=== PATIENT | male | born 1945 | race Caucasian/White ===

== ENCOUNTER 2016-08-30 11:31 | Outpatient (CLI) | payer MEDICARE | END 2016-08-30 11:32 | disposition home or self-care (01) | DX: E11.9 Type 2 diabetes mellitus without complications (principal) ==

== ENCOUNTER 2016-12-11 07:41 | Outpatient (CLI) | payer MEDICARE ==
[2016-12-11 08:38] LABS: HEMOGLOBIN A1C 0.8 g/dL
== END 2016-12-11 07:42 | disposition home or self-care (01) ==
LOC: LAB 07:41
PROVIDERS: ATTEND Internal Medicine
DX: E11.65 Type 2 diabetes mellitus with hyperglycemia (principal)
CPT/HCPCS: 36415; 83036

== ENCOUNTER 2017-02-02 13:07 | Outpatient (CLI) | payer MEDICARE | END 2017-02-02 13:08 | disposition home or self-care (01) | LOC: SC 13:07 | PROVIDERS: ATTEND Internal Medicine Pulmonary Disease | DX: G47.33 Obstructive sleep apnea (adult) (pediatric) (principal) | CPT/HCPCS: 99213; G0463; 99212 ==

== ENCOUNTER 2017-05-13 08:12 | Outpatient (CLI) | payer MEDICARE ==
[2017-05-13 08:25] LABS: BASOPHILS % (AUTO) 0.7 %; EOSINOPHILS # (AUTO) 0.1 10^3/uL (0.0-0.7); EOSINOPHILS % (AUTO) 1.3 %; HCT - HEMATOCRIT 39.7 % (42.0-52.0); HGB - HEMOGLOBIN 13.7 g/dL (14.0-18.0); LYMPHOCYTES # (AUTO) 1.3 10^3/uL (1.5-3.5); LYMPHOCYTES % (AUTO) 25.2 %; MEAN CORPUSCULAR HEMOGLOBIN 30.8 pg (27.0-31.0); MEAN CORPUSCULAR HGB CONC 34.4 g/dL (32.0-36.0); MEAN CORPUSCULAR VOLUME 89.5 fL (80.0-94.0); MEAN PLATELET VOLUME 7.3 fL (7.4-11.4); MONOCYTES # (AUTO) 0.5 10^3/uL (0.0-1.0); NEUTROPHILS # (AUTO) 3.3 10^3/uL (1.5-6.6); NEUTROPHILS % (AUTO) 63.8 %; NUCLEATED RED BLOOD CELLS AUTO 0.1 /100WBC; RED BLOOD COUNT 4.44 10^6/uL (4.70-6.10); RED CELL DISTRIBUTION WIDTH 14.1 % (12.0-15.0); UNCORRECTED WHITE BLOOD COUNT 5.1 x10^3/uL; WHITE BLOOD COUNT 5.1 x10^3/uL (4.8-10.8)
[2017-05-13 08:42] LABS: ALBUMIN/GLOBULIN RATIO 1.7 (1.0-2.2); BILIRUBIN,TOTAL 0.8 mg/dL (0.2-1.0); BUN - BLOOD UREA NITROGEN 12 mg/dL (6-20); CALCIUM 8.9 mg/dL (8.5-10.3); CARBON DIOXIDE - CO2 26 mmol/L (21-32); CHLORIDE 106 mmol/L (101-111); CHOL/HDL RATIO 2.6 (<5.0); CHOLESTEROL 121 mg/dL; CREATININE 0.7 mg/dL (0.6-1.2); GFR - MDRD 112 (>89); GLUCOSE 139 mg/dL (70-100); HDL CHOLESTEROL 46 mg/dL; LDL/HDL RATIO 1.2 (<3.6); POTASSIUM 3.7 mmol/L (3.5-5.0); SODIUM 139 mmol/L (135-145); TRIGLYCERIDES 105 mg/dL; VLDL CHOLESTEROL 21 mg/dL
[2017-05-13 08:47] LABS: HEMOGLOBIN A1C 0.6 g/dL
== END 2017-05-13 08:13 | disposition home or self-care (01) ==
LOC: LAB 08:12
PROVIDERS: ATTEND Internal Medicine
DX: G47.33 Obstructive sleep apnea (adult) (pediatric) (principal); E11.9 Type 2 diabetes mellitus without complications; I10 Essential (primary) hypertension; E78.5 Hyperlipidemia, unspecified; N40.0 Benign prostatic hyperplasia without lower urinary tract symptoms; N20.0 Calculus of kidney
CPT/HCPCS: 36415; 80053; 80061; 83036; 84443; 85025

== ENCOUNTER 2017-05-19 09:18 | Outpatient (CLI) | payer MEDICARE | END 2017-05-19 09:19 | disposition home or self-care (01) | LOC: LAB 09:18 | PROVIDERS: ATTEND Internal Medicine | DX: N40.0 Benign prostatic hyperplasia without lower urinary tract symptoms (principal) | CPT/HCPCS: 84153 ==

== ENCOUNTER 2017-10-12 09:33 | Outpatient (CLI) | payer MEDICARE ==
[2017-10-12 10:46] LABS: HB2 TOTAL 14.7 g/dL; HEMOGLOBIN A1C 0.68 g/dL; HEMOGLOBIN A1C % 6.4 % (4.6-6.2)
== END 2017-10-12 09:34 | disposition home or self-care (01) ==
LOC: LAB 09:33
PROVIDERS: ATTEND Internal Medicine
DX: E11.9 Type 2 diabetes mellitus without complications (principal)
CPT/HCPCS: 36415; 83036

== ENCOUNTER 2017-12-15 14:00 | Outpatient (CLI) | payer MEDICARE | END 2017-12-15 14:01 | disposition home or self-care (01) | LOC: SC 14:00 | PROVIDERS: ATTEND Internal Medicine Pulmonary Disease | DX: G47.33 Obstructive sleep apnea (adult) (pediatric) (principal) | CPT/HCPCS: 99213; G0463; 99212 ==

== ENCOUNTER 2018-02-04 08:34 | Outpatient (CLI) | payer MEDICARE | END 2018-02-04 08:35 | disposition home or self-care (01) | LOC: SC 08:34 | PROVIDERS: ATTEND Nurse Practitioner Family | DX: G47.33 Obstructive sleep apnea (adult) (pediatric) (principal) | CPT/HCPCS: 99214; G0463; 99212 ==

== ENCOUNTER 2018-06-17 07:52 | Outpatient (CLI) | payer MEDICARE ==
[2018-06-17 08:53] LABS: ALBUMIN 4.3 g/dL (3.2-5.5); ALBUMIN/GLOBULIN RATIO 1.6 (1.0-2.2); ALKALINE PHOSPHATASE 57 IU/L (42-121); ALT ALANINE AMINOTRANSFERASE 22 IU/L (10-60); AST ASPARTATE AMINOTRANSFERASE 21 IU/L (10-42); BILIRUBIN,TOTAL 1.3 mg/dL (0.2-1.0); BUN - BLOOD UREA NITROGEN 9 mg/dL (6-20); CALCIUM 9.1 mg/dL (8.5-10.3); CARBON DIOXIDE - CO2 25 mmol/L (21-32); CHLORIDE 107 mmol/L (101-111); CHOLESTEROL 132 mg/dL; CREATININE 0.7 mg/dL (0.6-1.2); GFR - MDRD 111 (>89); GLUCOSE 157 mg/dL (70-100); HDL CHOLESTEROL 65 mg/dL; LDL CHOLESTEROL,CALCULATED 48 mg/dL; LDL/HDL RATIO 0.7 (<3.6); SODIUM 141 mmol/L (135-145); URIC ACID 6.1 mg/dL (2.6-7.2); VLDL CHOLESTEROL 19 mg/dL
[2018-06-17 09:36] LABS: BASOPHILS # (AUTO) 0.1 10^3/uL (0.0-0.1); BASOPHILS % (AUTO) 1.4 %; EOSINOPHILS # (AUTO) 0.1 10^3/uL (0.0-0.7); EOSINOPHILS % (AUTO) 1.8 %; HGB - HEMOGLOBIN 14.1 g/dL (14.0-18.0); LYMPHOCYTES # (AUTO) 1.2 10^3/uL (1.5-3.5); LYMPHOCYTES % (AUTO) 25.6 %; MEAN CORPUSCULAR HEMOGLOBIN 31.3 pg (27.0-31.0); MEAN CORPUSCULAR HGB CONC 34.2 g/dL (32.0-36.0); MEAN CORPUSCULAR VOLUME 91.6 fL (80.0-94.0); MEAN PLATELET VOLUME 8.4 fL (7.4-11.4); MONOCYTES # (AUTO) 0.5 10^3/uL (0.0-1.0); MONOCYTES % (AUTO) 10.5 %; NEUTROPHILS # (AUTO) 2.8 10^3/uL (1.5-6.6); NEUTROPHILS % (AUTO) 60.7 %; PLT - PLATELET COUNT 181 10^3/uL (130-450); RED CELL DISTRIBUTION WIDTH 13.8 % (12.0-15.0); WHITE BLOOD COUNT 4.6 x10^3/uL (4.8-10.8)
[2018-06-17 19:21] LABS: HB2 TOTAL 14.4 g/dL; HEMOGLOBIN A1C 0.6 g/dL
== END 2018-06-17 07:53 | disposition home or self-care (01) ==
LOC: LAB 07:52
PROVIDERS: ATTEND Internal Medicine
DX: E11.9 Type 2 diabetes mellitus without complications (principal); N40.0 Benign prostatic hyperplasia without lower urinary tract symptoms; E78.5 Hyperlipidemia, unspecified; I10 Essential (primary) hypertension; Z79.899 Other long term (current) drug therapy; Z12.5 Encounter for screening for malignant neoplasm of prostate; M10.9 Gout, unspecified
CPT/HCPCS: 36415; 80053; 80061; 83036; 84443; 84550; 85025; G0103; 83721; 84153

== ENCOUNTER 2019-02-08 09:13 | Outpatient (CLI) | payer MEDICARE ==
--- NOTE | 2019-02-08 09:48 | SLEEP CARE CONSULTATION ---
Information from patient questionnaire entered by Mariza Pena. I have reviewed and concur with the information entered by Mariza Pena. This document represents the service I personally performed and the decisions made by me, Shy Khan MD, [facility]. History of Present Illness Previous diagnosis: Severe, Obstructive Sleep Apnea-Hypopnea Syndrome AHI: 59.1 Reason for CPAP/BiPAP follow up: annual Equipment type: CPAP Equipment obtained from: [facility] Mask style: Full face Mask brand: Respironics HPI additional information: HPI: Mr. Figueroa returned today for an annual follow up of nasal CPAP therapy. He was diagnosed to have severe obstructive sleep apnea-hypopnea syndrome. The patient a Respironics FanzilaWear full face mask. He reports using the device nightly and all through the night. The compliance report shows usage in 179 nights out of the past 180 nights, averaging 8.5 hours a night. He complained of no particular problem with the device such as soreness on the face, dry nose, epistaxis, nasal congestion or headache. He thinks that the pressure of 4 - 8 is comfortable. On the CPAP therapy he notices improvement in his sleep quality, and that he wakes up feeling fresher in the morning and more awake/alert during the day. His notices no snore at all (she snores loudly herself). The average residual AHI is 2.7; and air leak, 28 seconds a night. The 90th percentile pressure is 7.6 cmH2O. CPAP Compliance Data - Data Reviewed with Patient Average duration of nightly device use: 8.5 Compliance rate %: 99.4 (180 days) Current pressure setting (cmH2O): 4-8 Humidity settin Heated hose settin Average residual AHI: 2.7 Average large leak: 28 secs Subjective Initial [place] Sleepiness Scale score: 4 Current [place] Sleepiness Scale score: 4 Allergies and Home Medications Drug allergies reviewed: Yes Home medication list reviewed: Yes Allergy and home medication list: Medication Name (generic/name brand) Strength & Dosage Enalapril 20mg tab one twice daily Terazosin 10mg tab one twice daily Metformin 500mg tab one twice daily Finasteride 5mg one three times a week Plavix 75mg tab one three times a week Amlodipine Besylate 5mg tab one daily Review of Systems Review of systems same as previous: Yes Physical Exam Height: 5 ft 11 in Weight (kg): 245 lb Body Mass Index: 34.2 BMI Classification: Class 1 HEENT: No craniofacial malformation Impression and Plan 1. Obstructive Sleep Apnea-Hypopnea Syndrome, as suggested by history of loud and irregular snoring, frequent awakenings during the night, and daytime hypersomnolence. Narrow oropharynx and obesity are common predisposing factors for obstructive sleep apnea-hypopnea syndrome. Pathophysiology of sleep- disordered breathing was discussed. I recommend proceeding to polysomnography to confirm the diagnosis and to assess severity. If he has significant sleep disordered breathing, a manual CPAP titration study will also be performed to find the optimal treatment pressure. I informed the patient of what the sleep studies involve and after some discussion, he agreed to proceed. Plan: 1. Schedule polysomnography + manual CPAP titration study and return in 1 to 2 weeks after the study to discuss result and initiate therapy. 2. Avoid long distance driving or when feeling sleepy. 3. Avoid alcohol, sedative and muscle relaxant around bedtime. 4. Attempt to lose weight. I spent 100% of this 30 minute visit face to face with the patient with greater than 50% of this was spent time counseling the patient and coordination of care.
== END 2019-02-08 09:14 | disposition home or self-care (01) ==
LOC: SC 09:13
PROVIDERS: ATTEND Internal Medicine Pulmonary Disease
DX: G47.33 Obstructive sleep apnea (adult) (pediatric) (principal)
CPT/HCPCS: 99213; G0463; 99212

== ENCOUNTER 2019-03-06 17:03 | Emergency (ER) | payer MEDICARE ==
--- NOTE | 2019-03-06 17:31 | ED Physician Documentation ---
History of Present Illness - Stated complaint Stated Complaint: MALE /BLOOD IN URINE - Chief complaint Chief Complaint: UTI - History obtained from History obtained from: Patient - History of Present Illness Timing: Today (Painless hematuria today, mild urinary frequency without dysuria. He has a history of BPH for which she is on finasteride and has had renal colic in the past. He has mild low back pain but no flank pain.) Review of Systems Constitutional: denies: Fever, Chills GI: denies: Abdominal Pain, Nausea, Vomiting : reports: Frequency. denies: Dysuria, Hesitancy PD PAST MEDICAL HISTORY - Past Medical History Cardiovascular: Hypertension, High cholesterol, Coronary artery disease, Other Respiratory: Sleep apnea, CPAP use Endocrine/Autoimmune: Type 2 diabetes GI: None : Benign prostate hypertrophy, Kidney stones HEENT: None Psych: None Musculoskeletal: Osteoarthritis, Gout, Other Derm: None - Past Surgical History General: Cholecystectomy, Colonoscopy Ortho: Arthroscopic surgery, Other - Present Medications Home Medications: Ambulatory Orders Medication Instructions Recorded Confirmed Enalapril Maleate [Vasotec] 20 mg PO BID 02/13/14 05/10/14 Finasteride [Proscar] 5 mg ORAL DAILY 02/13/14 05/10/14 Metformin HCl [Metformin ER 500 mg PO BID 02/13/14 05/10/14 Osmotic] Pravastatin Sodium 20 mg ORAL DAILY 02/13/14 05/10/14 Terazosin [Hytrin] 10 mg ORAL BID 02/13/14 05/10/14 Aspirin [Aspir 81] 1 tab ORAL DAILY 02/14/14 05/11/14 amLODIPine [Norvasc] 5 mg PO DAILY 05/11/14 05/11/14 Hydrocodone/Acetaminophen 1 - 2 each PO Q6H PRN #14 tablet 03/06/19 [Hydrocodon-Acetaminophen 5-325] - Allergies Allergies/Adverse Reactions: Allergies Allergy/AdvReac Type Severity Reaction Status Date / Time No Known Drug Allergies Allergy Verified 03/06/19 17:19 - Social History Does the pt smoke?: No Smoking Status: Never smoker Does the pt drink ETOH?: Yes - Immunizations Immunizations are current?: Yes PD ED PE NORMAL - Vitals Vital signs reviewed: Yes - General General: Alert and oriented X 3, No acute distress - Abdomen Abdomen: Normal bowel sounds, Soft, Non tender - Back Back: No CVA TTP, No spinal TTP - Derm Derm: Normal color, Warm and dry - Neuro Neuro: Alert and oriented X 3, Normal speech Results - Vitals Vitals: Vital Signs - 24 hr 03/06/19 03/06/19 17:19 19:44 Temperature 36.9 C 36.7 C Heart Rate 70 68 Respiratory 15 16 Rate Blood Pressure 165/84 H 142/71 H O2 Saturation 97 98 Oxygen O2 Source Room air - Labs Labs: Laboratory Tests 03/06/19 17:25 Urine Color LT RED Urine Clarity BLOODY Urine pH 6.5 Ur Specific [place] <=1.005 Urine Protein NEGATIVE Urine Glucose (UA) NEGATIVE Urine Ketones NEGATIVE Urine Occult Blood LARGE H Urine Nitrite NEGATIVE Urine Bilirubin NEGATIVE Urine Urobilinogen 0.2 (NORMAL) Ur Leukocyte Esterase NEGATIVE Urine RBC TNTC H Urine WBC 0-3 Ur Squamous Epith Cells NONE SEEN Urine Bacteria None Seen Ur Microscopic Review INDICATED Urine Culture Comments NOT INDICATED - Rads (name of study) CT KUB Radiology: EMP read contemporaneously (Obstructing 8 mm calculus in the distal right ureter, enlarged heterogenous prostate, coronary artery calcifications) PD MEDICAL DECISION MAKING - ED course ED course: This is a gentleman with history of renal colic and BPH who presents with gross hematuria today. The urine is not opaque and there are no clots. A CT was done showing an 8 mm stone from which he has minimal pain. He was given a prescription for hydrocodone just in case but he does need urologic follow-up given the size. Departure - Departure Disposition: 01 Home, Self Care Clinical Impression: Ureteral calculus, right Hematuria Qualifiers: Hematuria type: gross Qualified Code(s): R31.0 - Gross hematuria Hydronephrosis Qualifiers: Hydronephrosis type: with renal calculous obstruction Qualified Code(s): N13.2 - Hydronephrosis with renal and ureteral calculous obstruction Condition: Good Record reviewed to determine appropriate education?: Yes Instructions: ED Stone Renal W Colic Follow-Up: James Garcia MD [Provider Admit Priv/Credential] - Prescriptions: Hydrocodone/Acetaminophen [Hydrocodon-Acetaminophen 5-325] 1 - 2 each PO Q6H PRN #14 tablet PRN Reason: pain Comments: The cause of your bleeding today is an 8 mm right ureteral stone. You will need to follow-up with urology for this. Call tomorrow for an appointment. Return for new worsening symptoms. Drink plenty of water. Discharge Date/Time: 03/06/19 19:44
[2019-03-06 17:35] LABS: BILIRUBIN,URINE NEGATIVE (NEGATIVE); GLUCOSE, URINE (UA) NEGATIVE (NEGATIVE); KETONES,URINE (UA) NEGATIVE (NEGATIVE); LEUKOCYTE ESTERASE, URINE NEGATIVE (NEGATIVE); NITRITE,URINE NEGATIVE (NEGATIVE); OCCULT BLOOD,URINE LARGE (NEGATIVE); PH,URINE 6.5 PH (5.0-7.5); PROTEIN,URINE NEGATIVE (NEGATIVE); UROBILINOGEN,URINE 0.2 (NORMAL) E.U./dL (NORMAL)
[2019-03-06 17:37] LABS: CLARITY,URINE BLOODY (CLEAR)
[2019-03-06 17:42] LABS: BACTERIA,URINE None Seen /HPF (None Seen); RBC,URINE TNTC /HPF (0-5); SQUAMOUS EPITHELIAL CELL,UR NONE SEEN (<= Few)
--- NOTE | 2019-03-06 19:04 | CT Report ---
Reason: hematuria Procedure Date: 03/06/2019 Accession Number: [id number] / [id number] Procedure: CT - Abdomen/Pelvis WO CPT Code: FULL RESULT: EXAM: CT ABDOMEN AND PELVIS (CT KUB) EXAM DATE: 03/06/2019 06:06 PM. CLINICAL HISTORY: Hematuria. COMPARISONS: None. TECHNIQUE: Routine helical CT imaging was performed through the abdomen and pelvis without intravenous contrast. Lack of intravenous contrast can at times limit scan sensitivity, particularly for the detection of intraparenchymal and vascular pathology. Reconstructions: Coronal and sagittal. In accordance with CT protocol optimization, one or more of the following dose reduction techniques were utilized for this exam: automated exposure control, adjustment of mA and/or KV based on patient size, or use of iterative reconstructive technique. FINDINGS: ABDOMEN: Lung Bases: Incompletely included lower lungs are grossly clear. Heart size is within normal limits. Partially imaged severe coronary artery calcifications. No basilar effusions. Liver: Unremarkable. Gallbladder/Bile Ducts: Status post cholecystectomy. Visualized biliary tree is normal caliber. Spleen: Unremarkable. Pancreas: Unremarkable. Adrenal Glands: Unremarkable. Kidneys: Right kidney: A couple of calculi measuring up to 3 mm in the inferior pole. Mild hydroureteronephrosis to the level of an obstructing 8 mm calculus in the distal right ureter. Left kidney: Multiple renal cysts. No hydronephrosis or ureteric calculi. Peritoneum/Mesentery/Bowel: No free fluid, free air, or collection. No intestinal obstruction or inflammation. Appendix is unremarkable. Lymph nodes: No mesenteric, periportal, or retroperitoneal lymphadenopathy. PELVIS: The bladder is unremarkable for the degree of distention. Enlarged heterogeneous prostate indenting the base of the bladder. Large left and small right fat filled inguinal hernias. No pelvic lymphadenopathy. Retroperitoneum: Abdominal aorta is nonaneurysmal. Bones: No suspicious osseous lesions. IMPRESSION: Obstructing 8 mm calculus in the distal right ureter with mild hydroureteronephrosis. Enlarged heterogeneous prostate indenting the base of the bladder. Coronary artery calcifications. RADIA
[2019-03-06 19:45] VITALS: BP 142/71
== END 2019-03-06 19:44 | disposition home or self-care (01) ==
LOC: ED 17:03
DX: N13.2 Hydronephrosis with renal and ureteral calculous obstruction (principal); R31.0 Gross hematuria; N40.1 Benign prostatic hyperplasia with lower urinary tract symptoms; R35.0 Frequency of micturition; I10 Essential (primary) hypertension; E11.9 Type 2 diabetes mellitus without complications; Z79.84 Long term (current) use of oral hypoglycemic drugs; Z79.82 Long term (current) use of aspirin
CPT/HCPCS: 74176; 81001; 81003; 87086; 99283; 99284

== ENCOUNTER 2019-03-14 15:13 | Outpatient (CLI) | payer MEDICARE ==
[2019-03-14] MEDS ORDERED: IOVERSOL 320 100 ML VIAL IVP ONE ×2 (15:29→15:44)
--- NOTE | 2019-03-14 21:31 | CT Report ---
Reason: KIDNEY STONE, RENAL CYST Procedure Date: 03/14/2019 Accession Number: [id number] / [id number] Procedure: CT - IVP CPT Code: FULL RESULT: EXAM: CT ABDOMEN AND PELVIS WITHOUT AND WITH CONTRAST (CT IVP) EXAM DATE: 03/14/2019 03:55 PM. CLINICAL HISTORY: KIDNEY STONE, RENAL CYSTs. History of obstructing right ureter stone. Prostatic enlargement. COMPARISONS: ABDOMEN/PELVIS W/O 03/06/2019 6:01 PM. TECHNIQUE: Routine helical imaging was performed through the kidneys, ureters and bladder in the precontrast, postcontrast and delayed phase. IV Contrast: OPTI 320 60ML. Reconstructions: Coronal and sagittal. In accordance with CT protocol optimization, one or more of the following dose reduction techniques were utilized for this exam: automated exposure control, adjustment of mA and/or KV based on patient size, or use of iterative reconstructive technique. FINDINGS: Lung Bases: Cardiomegaly with coronary artery calcifications again seen. Small hiatal hernia. No acute abnormality. Liver: Unremarkable Gallbladder/Bile Ducts: Cholecystectomy. Bile ducts nondilated Spleen: Unremarkable Pancreas: Unremarkable. Adrenal Glands: Unremarkable Kidneys/Bladder: Right Kidney/Ureter: 1 mm lower pole nonobstructing stone again seen. Ureter stone longer visualized. Resolved hydronephrosis and proximal ureter dilation. Multiple incompletely characterized low-attenuation subcentimeter foci in the upper, mid and lower pole most likely representing small cysts. 8 mm high attenuation precontrast focus in posterior aspect of right mid kidney series 3 image 49 also most likely represents a cyst with high attenuation contents. No definite enhancing masses. Collecting systems and ureters opacify normally with contrast. Perinephric soft tissues unremarkable. Left Kidney/Ureter: No definite collecting system stones or ureter stone. No hydronephrosis. No hydroureter. Multiple cysts including 9.6 cm upper pole, 5.6 cm mid kidney posteriorly and 4 cm lower pole. Tiny rim calcifications are seen associated with the mid kidney and lower pole cysts. No significant enhancing components. Additional 9 mm exophytic cyst is seen in the mid to lower pole laterally, series 10 image 25. No complex cystic mass or solid mass suspicious for renal neoplasm/malignancy. Collecting systems and ureters opacify normally with contrast. Otherwise unremarkable. Bladder: Prominent prostate with nodular superior surface indenting the bladder floor. No separate bladder mass. No bladder stones. No gross bladder wall thickening or inflammatory change. No wall thickening or mass. Peritoneal Cavity/Bowel: Normal. No free fluid, free air or adenopathy. No masses or acute inflammatory process. Pelvic Organs: Visualized pelvic organs are unremarkable. Vasculature: Calcified atherosclerosis.No aneurysms or other significant abnormality. Bones: Spondylotic changes. Flowing syndesmophytes bridging multiple thoracic and upper lumbar disk spaces and SI joint fusion in a pattern consistent with ankylosing spondylitis. No bone lesion suspicious for malignancy. No acute bone abnormality. Other: Small fat-containing left inguinal hernia. IMPRESSION: 1. Resolved right hydronephrosis. Right ureter stone longer visualized. Single tiny remaining nonobstructing 1 mm right kidney stone. 2. Kidney cysts, with largest cysts on the left. No complex cystic mass suspicious for neoplasm. 3. Incompletely characterized probable subcentimeter kidney cysts are also seen. No definite enhancing renal neoplasm. Renal collecting systems and ureters appear unremarkable. 4. Examination otherwise as detailed above. RADIA
== END 2019-03-14 15:14 | disposition home or self-care (01) ==
LOC: DI 15:13
PROVIDERS: ATTEND Physician Assistant
DX: N28.1 Cyst of kidney, acquired (principal); N20.0 Calculus of kidney
CPT/HCPCS: 74178; Q9967

== ENCOUNTER 2019-08-31 08:32 | Outpatient (CLI) | payer MEDICARE ==
[2019-08-31 08:53] LABS: BASOPHILS # (AUTO) 0.1 10^3/uL (0.0-0.1); BASOPHILS % (AUTO) 0.9 %; EOSINOPHILS # (AUTO) 0.1 10^3/uL (0.0-0.7); EOSINOPHILS % (AUTO) 1.5 %; HGB - HEMOGLOBIN 13.8 g/dL (14.0-18.0); LYMPHOCYTES # (AUTO) 1.5 10^3/uL (1.5-3.5); MEAN CORPUSCULAR HEMOGLOBIN 31.4 pg (27.0-31.0); MEAN CORPUSCULAR HGB CONC 33.4 g/dL (32.0-36.0); MEAN CORPUSCULAR VOLUME 93.9 fL (80.0-94.0); MEAN PLATELET VOLUME 9.7 fL (7.4-11.4); MONOCYTES # (AUTO) 0.6 10^3/uL (0.0-1.0); MONOCYTES % (AUTO) 10.8 %; NEUTROPHILS # (AUTO) 3.2 10^3/uL (1.5-6.6); NEUTROPHILS % (AUTO) 59.2 %; PLT - PLATELET COUNT 192 10^3/uL (130-450); RED CELL DISTRIBUTION WIDTH 13.3 % (12.0-15.0); WHITE BLOOD COUNT 5.4 x10^3/uL (4.8-10.8)
[2019-08-31 09:12] LABS: ALBUMIN 4.2 g/dL (3.2-5.5); ALBUMIN/GLOBULIN RATIO 1.4 (1.0-2.2); ALKALINE PHOSPHATASE 43 IU/L (42-121); ALT ALANINE AMINOTRANSFERASE 24 IU/L (10-60); AST ASPARTATE AMINOTRANSFERASE 20 IU/L (10-42); BUN - BLOOD UREA NITROGEN 14 mg/dL (6-20); CALCIUM 8.6 mg/dL (8.5-10.3); CARBON DIOXIDE - CO2 27 mmol/L (21-32); CHLORIDE 106 mmol/L (101-111); CHOL/HDL RATIO 3.3 (<5.0); CHOLESTEROL 152 mg/dL; CREATININE 0.7 mg/dL (0.6-1.2); GLUCOSE 171 mg/dL (70-100); HDL CHOLESTEROL 46 mg/dL; LDL CHOLESTEROL,CALCULATED 73 mg/dL; LDL/HDL RATIO 1.6 (<3.6); SODIUM 140 mmol/L (135-145); TOTAL PROTEIN 7.2 g/dL (6.7-8.2); VLDL CHOLESTEROL 33 mg/dL
[2019-08-31 09:17] LABS: HB2 TOTAL 14.3 g/dL; HEMOGLOBIN A1C 0.8 g/dL; HEMOGLOBIN A1C % 7.3 % (4.6-6.2)
== END 2019-08-31 08:33 | disposition home or self-care (01) ==
LOC: LAB 08:32
PROVIDERS: ATTEND Family Medicine
DX: E11.9 Type 2 diabetes mellitus without complications (principal); N40.0 Benign prostatic hyperplasia without lower urinary tract symptoms; E78.5 Hyperlipidemia, unspecified; I10 Essential (primary) hypertension; Z79.899 Other long term (current) drug therapy; Z12.5 Encounter for screening for malignant neoplasm of prostate
CPT/HCPCS: 36415; 80053; 80061; 83036; 84443; 85025; G0103; 83721; 84153

== ENCOUNTER 2020-02-14 10:46 | Outpatient (CLI) | payer MEDICARE ==
--- NOTE | 2020-02-14 11:11 | SLEEP CARE CONSULTATION ---
Information from patient questionnaire entered by Mariza Pena. I have reviewed and concur with the information entered by Mariza Pena. This document represents the service I personally performed and the decisions made by me, Shy Khan MD, [facility]. History of Present Illness Service Date and Time: 02/14/2020 1046 Previous diagnosis: Severe, Obstructive Sleep Apnea-Hypopnea Syndrome AHI: 59.1 (in 2012) Reason for follow up: annual (last seen 2018) Equipment type: CPAP Equipment obtained from: [facility] Mask style: Full face Mask brand: Respironics Prior sleep studies: Yes Year and Where: 2013 - [facility] Type of Sleep Study: Polysomnography HPI additional information: HPI: Mr. Figueroa returned today for an annual follow up of nasal CPAP therapy. He was diagnosed to have severe obstructive sleep apnea-hypopnea syndrome. The patient a Respironics DreamWear full face mask. He continues to use the device nightly and all through the night. The compliance report shows usage in 179 nights out of the past 180 nights, averaging 9 hours a night. He complained of no particular problem with the device such as soreness on the face, dry nose, epistaxis, nasal congestion or headache. He thinks that the pressure of 4 8 cmH2O is comfortable. On the CPAP therapy he notices improvement in his sleep quality, and that he wakes up feeling fresher in the morning and more awake/alert during the day. His notices no snore at all (she snores loudly herself). The average residual AHI is 2.2; and air leak, 19 seconds a night. The 90th percentile pressure is 7.9 cmH2O. CPAP Compliance Data - Data Reviewed with Patient Average duration of nightly device use: 8.95 Compliance rate %: 99.4 (180 days) Current pressure setting (cmH2O): 4-8 Humidity settin Heated hose settin Average residual AHI: 2.2 Average large leak: 19 sec Subjective Current pressure setting perceived as: comfortable Initial [place] Sleepiness Scale score: 4 (in 2012) Current [place] Sleepiness Scale score: 0 Allergies and Home Medications Drug allergies reviewed: Yes Home medication list reviewed: Yes Review of Systems Review of systems same as previous: Yes Physical Exam Vital signs obtained and entered by: To minimize the risk of COVID-19 exposure, detailed exam was not performed. Height: 5 ft 11 in Weight: 250 lb Body Mass Index: 34.8 BMI Classification: Obese Impression and Plan IMPRESSION: 1. Obstructive Sleep Apnea-Hypopnea Syndrome, severe, with the patient continuing to do very well on nasal CPAP therapy. He has excellent compliance and significant clinical improvement. The current pressure appears effective and comfortable. His mask fits well. Overall, he is very satisfied with treat ment and plans to continue with it long-term. No adjustment is necessary today. PLAN: 1. Continue with autoCPAP set at 4 - 8 cmH2O. 2. Try to lose some weight 3. Try using the CPAP without the heated humidifier (he only has it set at 1 at the present). 4. Return in one year for follow up or earlier if there is any problem with the treatment. Visit Type: In Office Time Spent with Patient (minutes): 15 Provider Statement: I spent 100% of the Face to Face Visit with the patient with greater than 50% spent counseling the patient and coordination of care.
== END 2020-02-14 10:47 | disposition home or self-care (01) ==
LOC: SC 10:46
PROVIDERS: ATTEND Internal Medicine Pulmonary Disease
DX: G47.33 Obstructive sleep apnea (adult) (pediatric) (principal); E66.9 Obesity, unspecified; Z68.34 Body mass index [BMI] 34.0-34.9, adult
CPT/HCPCS: 99203; G0463; 99212

== ENCOUNTER 2020-06-21 13:43 | Emergency (ER) | payer MEDICARE ==
--- NOTE | 2020-06-21 14:51 | CT Report ---
PROCEDURE: HEAD WO INDICATIONS: closed head injury, anticoagulated TECHNIQUE: Noncontrast 4.5 mm thick angled axial sections acquired from the foramen magnum to the vertex. For r adiation dose reduction, the following was used: automated exposure control, adjustment of mA and/or kV according to patient size. COMPARISON: None. FINDINGS: Image quality: Excellent. CSF spaces: Basal cisterns are patent. No extra-axial fluid collections. Ventricles are normal in size and shape. Brain: No midline shift. No intracranial masses or hemorrhage. Brain parenchymal volume loss is se en. Mild chronic small vessel ischemic change can be seen. Motley-white matter interface is normal. Skull and face: There is a minimal right forehead soft tissue hematoma seen, as on series 3 image 14 . No underlying calvarial fracture can be seen. Calvarium and visualized facial bones are intact, wit hout suspicious lesions. Sinuses: Visualized sinuses and mastoids are clear. IMPRESSION: Minimal right forehead soft tissue hematoma, without an associated calvarial fracture. No intracranial hemorrhage is seen. No significant intracranial abnormality is seen. Age-appropriate brain parenchymal volume loss and chronic small vessel ischemic change can be seen. Reviewed by: Greg Plata MD on 06/21/2020 1:50 PM [place] Approved by: Greg Plata MD on 06/21/2020 1:50 PM [facility] Station ID: [id number]
--- NOTE | 2020-06-21 15:18 | ED Physician Documentation ---
History of Present Illness - Stated complaint Stated Complaint: FACE PX - Chief complaint Chief Complaint: Trauma Hd/Nk - History obtained from History obtained from: Patient - Additonal information Additional information: Patient comes emergency department for chief complaint of ground-level fall after tripping over a curb. The patient states that he did not really catch himself very much except a little bit with his right hand. He struck his face on the concrete and states the main thing that is bothering him is that he feels a burning sensation in the skin of his face where he scraped himself. Patient states that he did not lose consciousness. He denies any visual changes or other focal neurologic deficits. He was able to get up and walk after the fall. No hip or rib pain. No extremity pain. No other complaints at this time. The patient does take Plavix. Review of Systems Ten Systems: 10 systems reviewed and negative Constitutional: reports: Reviewed and negative Eyes: reports: Reviewed and negative Ears: reports: Reviewed and negative Nose: reports: Reviewed and negative Throat: reports: Reviewed and negative Cardiac: reports: Reviewed and negative Respiratory: reports: Reviewed and negative GI: reports: Reviewed and negative : reports: Reviewed and negative Skin: reports: Abrasion (s) Musculoskeletal: reports: Reviewed and negative Neurologic: reports: Head injury. denies: Headache, LOC Psychiatric: reports: Reviewed and negative Endocrine: reports: Reviewed and negative Immunocompromised: reports: Reviewed and negative PD PAST MEDICAL HISTORY - Past Medical History Past Medical History: Yes Cardiovascular: Hypertension, High cholesterol, Coronary artery disease, Other Respiratory: Sleep apnea, CPAP use Endocrine/Autoimmune: Type 2 diabetes GI: None : Benign prostate hypertrophy, Kidney stones HEENT: None Psych: None Musculoskeletal: Osteoarthritis, Gout, Other Derm: None - Past Surgical History Past Surgical History: Yes General: Cholecystectomy, Colonoscopy Ortho: Arthroscopic surgery, Other - Present Medications Home Medications: Ambulatory Orders Medication Instructions Recorded Confirmed Enalapril Maleate [Vasotec] 20 mg PO BID 02/13/14 05/10/14 Finasteride [Proscar] 5 mg ORAL DAILY 02/13/14 05/10/14 Metformin HCl [Metformin ER 500 mg PO BID 02/13/14 05/10/14 Osmotic] Pravastatin Sodium 20 mg ORAL DAILY 02/13/14 05/10/14 Terazosin [Hytrin] 10 mg ORAL BID 02/13/14 05/10/14 Aspirin [Aspir 81] 1 tab ORAL DAILY 02/14/14 05/11/14 amLODIPine [Norvasc] 5 mg PO DAILY 05/11/14 05/11/14 Hydrocodone/Acetaminophen 1 - 2 each PO Q6H PRN #14 tablet 03/06/19 [Hydrocodon-Acetaminophen 5-325] - Allergies Allergies/Adverse Reactions: Allergies Allergy/AdvReac Type Severity Reaction Status Date / Time No Known Drug Allergies Allergy Verified 06/21/20 13:50 - Social History Does the pt smoke?: No Smoking Status: Never smoker Does the pt drink ETOH?: Yes - Immunizations Immunizations are current?: Yes PD ED PE NORMAL - Vitals Vital signs reviewed: Yes - General General: Alert and oriented X 3, No acute distress - HEENT HEENT: PERRL, EOMI, Moist mucous membranes, Other (Large abrasion over right lateral forehead and face.No bony deformity. No swelling.) - Neck Neck: Supple, no meningeal sign, No bony TTP - Cardiac Cardiac: RRR, No murmur, Strong equal pulses - Respiratory Respiratory: No respiratory distress, Clear bilaterally - Abdomen Abdomen: Soft, Non tender, Non distended - Back Back: No spinal TTP, Other (No rib tenderness posteriorly or anteriorly. No step-off.) - Derm Derm: Normal color, Warm and dry, No rash - Extremities Extremities: No deformity, No tenderness to palpate, Normal ROM s pain (Full range of motion of all extremities at all joints.), No edema, Other - Neuro Neuro: Alert and oriented X 3, assistant plant controller 2-12 intact, No motor deficit, No sensory deficit, Normal speech - Psych Psych: Normal mood, Normal affect Results - Vitals Vitals: Vital Signs - 24 hr 06/21/20 13:50 Temperature 36.7 C Heart Rate 90 Respiratory 19 Rate Blood Pressure 168/80 H O2 Saturation 100 Oxygen O2 Source Room air - Rads (name of study) CT head Radiology: Final report received, EMP read indepedently, See rad report (NAD) Departure - Departure Disposition: 01 Home, Self Care Clinical Impression: Abrasions of multiple sites Closed head injury Qualifiers: Encounter type: initial encounter Qualified Code(s): S09.90XA - Unspecified injury of head, initial encounter Condition: Stable Instructions: ED Head Injury Closed Comments: Your head CT looks good. There is no evidence of any bleeding in your brain you should continue your medications, as usual. You may take Tylenol as needed for any headaches you may have. Once your scrapes have dried up and form scabs, you may leave them open to air.
[2020-06-21] MEDS ORDERED: LIDOCAINE-EPINEPH-TETRACAINE 3 ML SYRINGE TOP STA (15:40)
[2020-06-21 15:51] VITALS: BP 131/83
== END 2020-06-21 15:50 | disposition home or self-care (01) ==
LOC: ED 13:43
DX: S00.81XA Abrasion of other part of head, initial encounter (principal); S09.90XA Unspecified injury of head, initial encounter; W01.0XXA Fall on same level from slipping, tripping and stumbling without subsequent striking against object, initial encounter; Y93.01 Activity, walking, marching and hiking; Y92.242 Post office as the place of occurrence of the external cause; Z79.02 Long term (current) use of antithrombotics/antiplatelets; I10 Essential (primary) hypertension; E11.9 Type 2 diabetes mellitus without complications; Z79.84 Long term (current) use of oral hypoglycemic drugs; Z79.82 Long term (current) use of aspirin
CPT/HCPCS: 99282; 99284

== ENCOUNTER 2020-10-26 08:16 | Outpatient (CLI) | payer MEDICARE ==
[2020-10-26 08:53] LABS: BASOPHILS # (AUTO) 0.1 10^3/uL (0.0-0.1); BASOPHILS % (AUTO) 1.1 %; EOSINOPHILS # (AUTO) 0.1 10^3/uL (0.0-0.7); EOSINOPHILS % (AUTO) 1.3 %; HGB - HEMOGLOBIN 13.6 g/dL (14.0-18.0); LYMPHOCYTES # (AUTO) 1.2 10^3/uL (1.5-3.5); MEAN CORPUSCULAR HEMOGLOBIN 31.4 pg (27.0-31.0); MEAN CORPUSCULAR VOLUME 92.4 fL (80.0-94.0); MEAN PLATELET VOLUME 9.8 fL (7.4-11.4); MONOCYTES # (AUTO) 0.5 10^3/uL (0.0-1.0); MONOCYTES % (AUTO) 10.6 %; NEUTROPHILS # (AUTO) 2.9 10^3/uL (1.5-6.6); NEUTROPHILS % (AUTO) 60.6 %; PLT - PLATELET COUNT 194 10^3/uL (130-450); RED BLOOD COUNT 4.33 10^6/uL (4.70-6.10); RED CELL DISTRIBUTION WIDTH 13.5 % (12.0-15.0); WHITE BLOOD COUNT 4.7 x10^3/uL (4.8-10.8)
[2020-10-26 09:12] LABS: ALBUMIN 3.9 g/dL (3.2-5.5); ALBUMIN/GLOBULIN RATIO 1.4 (1.0-2.2); ALKALINE PHOSPHATASE 49 IU/L (42-121); ALT ALANINE AMINOTRANSFERASE 21 IU/L (10-60); AST ASPARTATE AMINOTRANSFERASE 16 IU/L (10-42); BILIRUBIN,TOTAL 0.8 mg/dL (0.2-1.0); BUN - BLOOD UREA NITROGEN 11 mg/dL (6-20); CALCIUM 8.7 mg/dL (8.5-10.3); CARBON DIOXIDE - CO2 26 mmol/L (21-32); CHLORIDE 105 mmol/L (101-111); CHOL/HDL RATIO 3.3 (<5.0); CHOLESTEROL 143 mg/dL; CREATININE 0.8 mg/dL (0.6-1.2); GFR - MDRD 95 (>89); GLUCOSE 261 mg/dL (70-100); HDL CHOLESTEROL 43 mg/dL; LDL CHOLESTEROL,CALCULATED 74 mg/dL; LDL/HDL RATIO 1.7 (<3.6); POTASSIUM 4.1 mmol/L (3.5-5.0); SODIUM 140 mmol/L (135-145); TOTAL PROTEIN 6.7 g/dL (6.7-8.2); TRIGLYCERIDES 131 mg/dL; VLDL CHOLESTEROL 26 mg/dL
[2020-10-26 09:24] LABS: THYROID STIMULATING HORMONE 2.14 uIU/mL (0.34-5.60)
[2020-10-26 09:58] LABS: MICROALBUM/CREATININE RATIO,UR 33.9 ug/mg (<30.0)
[2020-10-26 12:01] LABS: ESTIMATED AVERAGE GLUCOSE 212 mg/dL (70-100)
== END 2020-10-26 08:17 | disposition home or self-care (01) ==
LOC: LAB 08:16
PROVIDERS: ATTEND Family Medicine
DX: E11.9 Type 2 diabetes mellitus without complications (principal); E78.5 Hyperlipidemia, unspecified; I10 Essential (primary) hypertension; N40.0 Benign prostatic hyperplasia without lower urinary tract symptoms; E66.9 Obesity, unspecified
CPT/HCPCS: 36415; 80053; 80061; 82043; 82570; 83036; 83721; 84153; 84443; 85025

== ENCOUNTER 2021-01-15 08:18 | Outpatient (CLI) | payer MEDICARE ==
[2021-01-15 09:07] LABS: CALCIUM 9.5 mg/dL (8.5-10.3); CREATININE 0.8 mg/dL (0.6-1.2); POTASSIUM 4.9 mmol/L (3.5-5.0)
[2021-01-15 13:27] LABS: ESTIMATED AVERAGE GLUCOSE 148 mg/dL (70-100); HEMOGLOBIN A1c% 6.8 % (4.27-6.07)
== END 2021-01-15 08:19 | disposition home or self-care (01) ==
LOC: LAB 08:18
PROVIDERS: ATTEND Family Medicine
DX: E11.65 Type 2 diabetes mellitus with hyperglycemia (principal)
CPT/HCPCS: 36415; 80048; 83036

== ENCOUNTER 2021-02-04 14:10 | Outpatient (CLI) | payer MEDICARE ==
--- NOTE | 2021-02-04 14:43 | SLEEP CARE CONSULTATION ---
Information from patient questionnaire entered by Mariza Pena. I have reviewed and concur with the information entered by Mariza Pena. This document represents the service I personally performed and the decisions made by me, Shy Khan MD, [facility]. History of Present Illness Service Date and Time: 02/04/2021 1410 Previous diagnosis: Severe, Obstructive Sleep Apnea-Hypopnea Syndrome AHI: 59.1 (in 2012) Reason for follow up: annual (last seen 01/2020) Equipment type: CPAP Equipment obtained from: Other ([facility]) Mask style: Full face Prior sleep studies: Yes Year and Where: 2013 - [facility] Type of Sleep Study: Polysomnography HPI additional information: Mr. Figueroa returned today for an annual follow up of nasal CPAP therapy. He was diagnosed to have severe obstructive sleep apnea-hypopnea syndrome. The patient a ResMed AirTouch F-20 full face mask. He continues to use the device nightly and all through the night. The compliance report shows usage in 161 nights out of the past 180 nights, averaging 9 hours a night. The > 4 hour compliance rate for the past 30 days is 89%. He complained of no particular problem with the device such as soreness on the face, dry nose, epistaxis, nasal congestion or headache. He thinks that the pressure of 4 8 cmH2O is comfortable. On the CPAP therapy he notices improvement in his sleep quality, and that he wakes up feeling fresher in the morning and more awake/alert during the day. [place] Sleepiness Scale score is 0. His notices no snore at all (she snores loudly herself). The average residual AHI is 1.0; and air leak, 0 seconds a night. The 90th percentile pressure is 7.9 cmH2O. CPAP Compliance Data - Data Reviewed with Patient Average duration of nightly device use: 9 hr 1 min Compliance rate %: 89.4 (180 days) Current pressure setting (cmH2O): 4-8 Humidity settin Heated hose settin Average residual AHI: 1.6 Average large leak: 0 Subjective Initial [place] Sleepiness Scale score: 4 (in 2012) Current [place] Sleepiness Scale score: 0 Allergies and Home Medications Drug allergies reviewed: Yes Review of Systems Review of systems same as previous: Yes Physical Exam Height: 5 ft 11 in Weight: 250 lb Body Mass Index: 34.8 BMI Classification: Obese Impression and Plan IMPRESSION: 1. Obstructive Sleep Apnea-Hypopnea Syndrome, severe, with the patient continuing to do very well on nasal CPAP therapy. He has excellent compliance and significant clinical improvement. The current pressure appears effective and comfortable. His mask fits well. Overall, he is very satisfied with treatment and plans to continue with it long-term. No adjustment is necessary today. In regards to the recall on all [employer] Respironics DreamStation devices, we discussed the risks and benefits of stopping versus continuing to use the device. In severe cases, it appears the benefits outweigh the risks and it is reasonable to continue until the replace part or machine becomes available. Symptoms that could be related to the recalled sound abatement foam piece are headache, nausea, chest tightness, and upper airway irritation. The patients should also look for debris in the air outlet, water reservoir, and hose. If found, the device should not be used. In [id number] cases, the patients should refrain from using the device. The patient has already registered the device online. He will keep using until it can be replaced. He is considering buying a new on online. PLAN: 1. Continue with autoCPAP set at 4 - 8 cmH2O. 2. Prescription made for a ResMed device to replace the recalled Respironics DreamSation autoCPAP. 3. Return for a follow up after a month on the new machine. 4. Otherwise, return for a follow up in one year. Prescriptions: Auto CPAP Follow up with Sleep Care in: 1-2 months Visit Type: In Office Time Spent with Patient (minutes): 15 Provider Statement: I spent 100% of the Face to Face Visit with the patient with greater than 50% spent counseling the patient and coordination of care.
== END 2021-02-04 14:11 | disposition home or self-care (01) ==
LOC: SC 14:10
PROVIDERS: ATTEND Internal Medicine Pulmonary Disease
DX: G47.33 Obstructive sleep apnea (adult) (pediatric) (principal); E66.9 Obesity, unspecified; Z68.34 Body mass index [BMI] 34.0-34.9, adult
CPT/HCPCS: 99212; G0463

== ENCOUNTER 2021-04-29 10:16 | Outpatient (CLI) | payer MEDICARE ==
--- NOTE | 2021-04-29 10:54 | SLEEP CARE CONSULTATION ---
Information from patient questionnaire entered by Angela Wyatt MA. I have reviewed and concur with the information entered by Angela Wyatt MA. This document represents the service I personally performed and the decisions made by me, Shy Khan MD, [facility]. History of Present Illness Service Date and Time: 04/29/2021 1016 Previous diagnosis: Severe, Obstructive Sleep Apnea-Hypopnea Syndrome AHI: 59.1 (in 2012) Reason for follow up: first compliance (IST COMPLIANCE AFTER SET UP ON 03/05/2021), first compliance after device update Equipment type: CPAP Equipment obtained from: Other ([facility]) Mask style: Full face Prior sleep studies: Yes Year and Where: 2012 - [facility] Sleep Type of Sleep Study: Polysomnography HPI additional information: Mr. Figueroa returned today for an follow up of nasal CPAP therapy after he acquired a new ResMed AirSense 11 from [facility]. He was diagnosed to have severe obstructive sleep apnea-hypopnea syndrome. The patient wears a ResMed AirTouch F-20 full face mask. He continues to use the device nightly and all through the night. The compliance report shows usage in 55 nights out of the past 55 nights, averaging 9.2 hours a night. He complained of no particular problem with the device such as soreness on the face, dry nose, epistaxis, nasal congestion or headache. He thinks that the pressure of 4 8 cmH2O is comfortable. On the CPAP therapy he notices improvement in his sleep quality, and that he wakes up feeling fresher in the morning and more awake/alert during the day. His notices no snore at all (she snores loudly herself). The average residual AHI is 0.8 (was 2.2 last year); and air leak, 0.1 L/minute. The 90th percentile pressure is 7.9 cmH2O. Sleep Study - Results Type of Sleep Study: Polysomnography Prior sleep studies: Yes Year and Where: 2012 - [facility] Sleep CPAP Compliance Data - Data Reviewed with Patient Average duration of nightly device use: 9 HOURS 14 MINUTES Compliance rate %: 100 Current pressure setting (cmH2O): 4 - 8 Average residual AHI: 0.8 Central apnea: 0 Obstructive apnea: .2 Subjective Initial [place] Sleepiness Scale score: 4 (in 2012) Current [place] Sleepiness Scale score: 0 (in 2020) Allergies and Home Medications Drug allergies reviewed: Yes Home medication list reviewed: Yes Review of Systems Review of systems same as previous: Yes Physical Exam Vital signs obtained and entered by: VALERIE MCKEON Blood Pressure: 162/96 (upper left bicept) Heart Rate: 68 O2 Saturation: 99 (with mask) Height: 5 ft 11 in Weight: 255 lb (winter clothes) Body Mass Index: 35.5 BMI Classification: Obese Impression and Plan IMPRESSION: 1. Obstructive Sleep Apnea-Hypopnea Syndrome, severe, with the patient continuing to do very well on nasal CPAP therapy. He has excellent compliance and significant clinical improvement. The current pressure appears effective and comfortable. His mask fits well. Overall, he is very satisfied with treatment and plans to continue with it long-term. No adjustment is necessary today. PLAN: 1. Continue with autoCPAP set at 4 - 8 cmH2O. 2. Try to lose some weight 3. Return in one year for follow up or earlier if there is any problem with the treatment. Counseling Topics: Weight loss health impact Follow up with Sleep Care in: 1 year Visit Type: In Office Time Spent with Patient (minutes): 15 Provider Statement: I spent 100% of the Face to Face Visit with the patient with greater than 50% spent counseling the patient and coordination of care.
[2021-04-29 10:55] VITALS: BP 162/96
== END 2021-04-29 10:17 | disposition home or self-care (01) ==
LOC: SC 10:16
PROVIDERS: ATTEND Internal Medicine Pulmonary Disease
DX: G47.33 Obstructive sleep apnea (adult) (pediatric) (principal); E66.9 Obesity, unspecified; Z68.35 Body mass index [BMI] 35.0-35.9, adult
CPT/HCPCS: 99212; G0463

== ENCOUNTER 2021-09-18 08:03 | Outpatient (CLI) | payer MEDICARE ==
[2021-09-18 08:35] LABS: BASOPHILS % (AUTO) 0.8 %; HCT - HEMATOCRIT 40.3 % (42.0-52.0); HGB - HEMOGLOBIN 13.6 g/dL (14.0-18.0); LYMPHOCYTES # (AUTO) 1.2 10^3/uL (1.5-3.5); LYMPHOCYTES % (AUTO) 29.1 %; MEAN CORPUSCULAR HEMOGLOBIN 31.2 pg (27.0-31.0); MEAN CORPUSCULAR HGB CONC 33.7 g/dL (32.0-36.0); MEAN CORPUSCULAR VOLUME 92.4 fL (80.0-94.0); MEAN PLATELET VOLUME 9.9 fL (7.4-11.4); MONOCYTES # (AUTO) 0.6 10^3/uL (0.0-1.0); NEUTROPHILS # (AUTO) 2.1 10^3/uL (1.5-6.6); NEUTROPHILS % (AUTO) 52.3 %; PLT - PLATELET COUNT 189 10^3/uL (130-450); RED BLOOD COUNT 4.36 10^6/uL (4.70-6.10); RED CELL DISTRIBUTION WIDTH 13.6 % (12.0-15.0)
[2021-09-18 08:46] LABS: CREATININE,URINE 100.7 mg/dL; MICROALBUM/CREATININE RATIO,UR 50.6 ug/mg (<30.0); MICROALBUMIN,URINE 5.1 mg/dL (0-300.0)
[2021-09-18 08:49] LABS: ALBUMIN 4.1 g/dL (3.2-5.5); ALBUMIN/GLOBULIN RATIO 1.5 (1.0-2.2); ALKALINE PHOSPHATASE 47 IU/L (42-121); ALT ALANINE AMINOTRANSFERASE 19 IU/L (10-60); AST ASPARTATE AMINOTRANSFERASE 20 IU/L (10-42); BILIRUBIN,TOTAL 0.8 mg/dL (0.2-1.0); BUN - BLOOD UREA NITROGEN 15 mg/dL (6-20); CALCIUM 8.7 mg/dL (8.5-10.3); CARBON DIOXIDE - CO2 25 mmol/L (21-32); CHLORIDE 102 mmol/L (101-111); CHOL/HDL RATIO 2.9 (<5.0); CHOLESTEROL 126 mg/dL; CREATININE 0.8 mg/dL (0.6-1.2); GFR - MDRD 95 (>89); GLUCOSE 174 mg/dL (70-100); HDL CHOLESTEROL 44 mg/dL; LDL CHOLESTEROL,CALCULATED 61 mg/dL; LDL/HDL RATIO 1.4 (<3.6); POTASSIUM 3.7 mmol/L (3.5-5.0); SODIUM 138 mmol/L (135-145); TOTAL PROTEIN 6.9 g/dL (6.7-8.2); TRIGLYCERIDES 107 mg/dL; VLDL CHOLESTEROL 21 mg/dL
[2021-09-18 09:00] LABS: THYROID STIMULATING HORMONE 2.8 uIU/mL (0.34-5.60)
[2021-09-18 09:36] LABS: ESTIMATED AVERAGE GLUCOSE 163 mg/dL (70-100); HEMOGLOBIN A1c% 7.3 % (4.27-6.07)
== END 2021-09-18 08:04 | disposition home or self-care (01) ==
LOC: LAB 08:03
PROVIDERS: ATTEND Family Medicine
DX: I10 Essential (primary) hypertension (principal); E11.65 Type 2 diabetes mellitus with hyperglycemia; E66.9 Obesity, unspecified; I47.1 Supraventricular tachycardia; G47.33 Obstructive sleep apnea (adult) (pediatric); E78.5 Hyperlipidemia, unspecified; M10.9 Gout, unspecified
CPT/HCPCS: 36415; 80053; 80061; 82043; 82570; 83036; 83721; 84443; 85025

== ENCOUNTER 2021-11-15 14:08 | Outpatient (CLI) | payer MEDICARE ==
--- NOTE | 2021-11-15 17:42 | XRAY Report ---
PROCEDURE: Lumbar Spine Complete INDICATIONS: BACK PAIN,LEFT TECHNIQUE: 4 views of the lumbar spine were acquired. COMPARISON: None. FINDINGS: Bones: 5 [id number] vertebrae are present. There is normal bony alignment. No vertebral body compression fractures. No suspicious bony lesions. Extensive degenerative change with multilevel di sc height loss and multilevel facet arthropathy. Soft tissues: Overlying bowel gas pattern is normal. No suspicious soft tissue calcifications. IMPRESSION: Extensive lumbar degenerative change. No evidence acute bony abnormality of the lumbar s pine. If clinical suspicion and/or symptoms persist, further assessment with repeat plain films or advanced imaging (e.g., CT, MRI, or bone scan) may be helpful for further assessment. Reviewed by: Rehan Casas MD on 11/15/2021 5:41 PM PDT Approved by: Rehan Casas MD on 11/15/2021 5:41 PM PDT Station ID: [id number]
== END 2021-11-15 14:09 | disposition home or self-care (01) ==
LOC: DI 14:08
PROVIDERS: ATTEND Physician Assistant
DX: M47.816 Spondylosis without myelopathy or radiculopathy, lumbar region (principal); M51.36 Other intervertebral disc degeneration, lumbar region

== ENCOUNTER 2022-11-19 08:09 | Outpatient (CLI) | payer MEDICARE ==
[2022-11-19 08:39] LABS: ALBUMIN 3.9 g/dL (3.2-5.5); ALBUMIN/GLOBULIN RATIO 1.3 (1.0-2.2); ALKALINE PHOSPHATASE 45 IU/L (42-121); ALT ALANINE AMINOTRANSFERASE 25 IU/L (10-60); AST ASPARTATE AMINOTRANSFERASE 26 IU/L (10-42); BILIRUBIN,TOTAL 0.9 mg/dL (0.2-1.0); BUN - BLOOD UREA NITROGEN 10 mg/dL (6-20); CALCIUM 9.1 mg/dL (8.5-10.3); CARBON DIOXIDE - CO2 27 mmol/L (21-32); CHLORIDE 106 mmol/L (101-111); CHOL/HDL RATIO 3.2 (<5.0); CHOLESTEROL 149 mg/dL; CREATININE 0.9 mg/dL (0.6-1.2); GFR - MDRD 82 (>89); GLUCOSE 243 mg/dL (70-100); HDL CHOLESTEROL 46 mg/dL; LDL CHOLESTEROL,CALCULATED 64 mg/dL; LDL/HDL RATIO 1.4 (<3.6); MAGNESIUM 1.5 mg/dL (1.7-2.8); POTASSIUM 3.8 mmol/L (3.5-5.0); SODIUM 141 mmol/L (135-145); TOTAL PROTEIN 6.8 g/dL (6.7-8.2); TRIGLYCERIDES 193 mg/dL; VLDL CHOLESTEROL 39 mg/dL
== END 2022-11-19 08:10 | disposition home or self-care (01) ==
LOC: LAB 08:09
PROVIDERS: ATTEND Internal Medicine Cardiovascular Disease
DX: E78.5 Hyperlipidemia, unspecified (principal); I10 Essential (primary) hypertension
CPT/HCPCS: 36415; 80053; 80061; 83721; 83735; 84443

== ENCOUNTER 2023-01-12 09:07 | Outpatient (CLI) | payer MEDICARE ==
--- NOTE | 2023-01-12 10:16 | SLEEP CARE CONSULTATION ---
Information from patient questionnaire entered by Remigio Campoverde. I have reviewed and concur with the information entered by Remigio Campoverde. This document represents the service I personally performed and the decisions made by me, Shy Khan MD, [facility]. History of Present Illness Service Date and Time: 01/12/2023 0907 Previous diagnosis: Severe, Obstructive Sleep Apnea-Hypopnea Syndrome AHI: 59.1 (in 2013) Reason for follow up: annual (LAST SEEN 04/2022) Equipment type: CPAP (RESMED) Equipment obtained from: Other ([facility]) Mask style: Full face Prior sleep studies: Yes Year and Where: 2012 - [facility] Type of Sleep Study: Polysomnography HPI additional information: Mr. Figueroa returned today for a follow up of nasal CPAP therapy after he acquired a ResMed AirSense 11 from [facility] over a year ago. He was diagnosed to have severe obstructive sleep apnea-hypopnea syndrome. The patient wears a ResMed AirTouch F-20 full face mask. He continues to use the device nightly and all through the night. The compliance report shows usage in 365 nights out of the past 365 nights, averaging 9.2 hours a night. He complained of no particular problem with the device such as soreness on the face, dry nose, epistaxis, nasal congestion or headache. He thinks that the pressure of 4 8 cmH2O is comfortable. On the CPAP therapy he notices improvem ent in his sleep quality, and that he wakes up feeling fresher in the morning and more awake/alert during the day. His [place] Sleepiness Scale score is 1. His notices no snore at all (she snores loudly herself). The average residual AHI is 2.4 (was 0.8 last year); and air leak, 0.6 L/minute. The 90th percentile pressure is 7.9 cmH2O. He also has a new [employer] DreamStation 2 autoCPAP which came as the replacement to the recalled DreamStation 1. He does not know what pressure is set on it. Sleep Study - Results Type of Sleep Study: Polysomnography Prior sleep studies: Yes Year and Where: 2012 - [facility] CPAP Compliance Data - Data Reviewed with Patient Average duration of nightly device use: 9HRS 55MINS Compliance rate %: 100 (07/11/22-01/06/23) Current pressure setting (cmH2O): 4-8 Average residual AHI: 2.1 Subjective Initial [place] Sleepiness Scale score: 4 (in 2013) Current [place] Sleepiness Scale score: 2 (01/12/23) Allergies and Home Medications Drug allergies reviewed: Yes Home medication list reviewed: Yes Allergy and home medication list: Allergies No Known Drug Allergies Allergy (Verified 01/09/23 10:10) Review of Systems Review of systems same as previous: Yes Physical Exam Vital signs obtained and entered by: REMIGIO Jimenez MA Blood Pressure: 124/72 (LEFT ARM) Cuff size: regular Heart Rate: 67 O2 Saturation: 95 Height: 5 ft 11 in Weight: 263 lb Body Mass Index: 36.6 BMI Classification: Obese Impression and Plan IMPRESSION: 1. Obstructive Sleep Apnea-Hypopnea Syndrome, severe, with the patient continuing to do very well on nasal CPAP therapy. He has excellent compliance and significant clinical improvement. The current pressure appears effective and comfortable. His mask fits well. Overall, he is very satisfied with the treatment and plans to continue with it long-term. No adjustment is necessary today. PLAN: 1. Continue with autoCPAP set at 4 - 8 cmH2O. 2. Try to lose some weight 3. Bring the memory card from the [employer] for download to confirm the pressure setting. 3. Return in one year for follow-up or earlier if there is any problem with the treatment. Counseling Topics: Weight control Follow up with Sleep Care in: 1 year Visit Type: In Office Time Spent with Patient (minutes): 15 Provider Statement: I spent 100% of the Face to Face Visit with the patient with greater than 50% spent counseling the patient and coordination of care.
[2023-01-12 10:17] VITALS: BP 124/72; O2SAT 95
== END 2023-01-12 09:08 | disposition home or self-care (01) ==
LOC: SC 09:07
PROVIDERS: ATTEND Internal Medicine Pulmonary Disease
DX: G47.33 Obstructive sleep apnea (adult) (pediatric) (principal); E66.9 Obesity, unspecified; Z68.36 Body mass index [BMI] 36.0-36.9, adult
CPT/HCPCS: 99212; G0463

== ENCOUNTER 2023-02-26 14:27 | Outpatient (CLI) | payer MEDICARE ==
[2023-02-26 14:52] LABS: BASOPHILS % (AUTO) 0.5 %; EOSINOPHILS # (AUTO) 0.2 10^3/uL (0.0-0.7); EOSINOPHILS % (AUTO) 1.9 %; HCT - HEMATOCRIT 30.3 % (42.0-52.0); HGB - HEMOGLOBIN 9.4 g/dL (14.0-18.0); LYMPHOCYTES # (AUTO) 1.4 10^3/uL (1.5-3.5); LYMPHOCYTES % (AUTO) 16.4 %; MEAN CORPUSCULAR HEMOGLOBIN 29.7 pg (27.0-31.0); MEAN CORPUSCULAR VOLUME 95.6 fL (80.0-94.0); MEAN PLATELET VOLUME 9.6 fL (7.4-11.4); MONOCYTES # (AUTO) 0.9 10^3/uL (0.0-1.0); MONOCYTES % (AUTO) 10.7 %; NEUTROPHILS # (AUTO) 5.9 10^3/uL (1.5-6.6); PLT - PLATELET COUNT 440 10^3/uL (130-450); RED BLOOD COUNT 3.17 10^6/uL (4.70-6.10); RED CELL DISTRIBUTION WIDTH 13.4 % (12.0-15.0); WHITE BLOOD COUNT 8.4 x10^3/uL (4.8-10.8)
[2023-02-26 16:23] LABS: ALBUMIN/GLOBULIN RATIO 0.8 (1.0-2.2); BILIRUBIN,TOTAL 0.4 mg/dL (0.2-1.0); CALCIUM 8.8 mg/dL (8.5-10.3); CREATININE 0.8 mg/dL (0.6-1.3); POTASSIUM 4.5 mmol/L (3.5-4.5); TOTAL PROTEIN 6.8 g/dL (6.4-8.9)
== END 2023-02-26 14:28 | disposition home or self-care (01) ==
LOC: LAB 14:27 → LAB.R 14:28
PROVIDERS: ATTEND Internal Medicine Infectious Disease
DX: I33.0 Acute and subacute infective endocarditis (principal)
CPT/HCPCS: 80053; 85025

== ENCOUNTER 2023-03-02 11:00 | Outpatient (CLI) | payer MEDICARE ==
[2023-03-02 11:07] LABS: BASOPHILS % (AUTO) 0.5 %; EOSINOPHILS # (AUTO) 0.2 10^3/uL (0.0-0.7); EOSINOPHILS % (AUTO) 3.7 %; HCT - HEMATOCRIT 30.2 % (42.0-52.0); HGB - HEMOGLOBIN 9.4 g/dL (14.0-18.0); LYMPHOCYTES # (AUTO) 1.2 10^3/uL (1.5-3.5); LYMPHOCYTES % (AUTO) 20.8 %; MEAN CORPUSCULAR HEMOGLOBIN 29.1 pg (27.0-31.0); MEAN CORPUSCULAR HGB CONC 31.1 g/dL (32.0-36.0); MEAN CORPUSCULAR VOLUME 93.5 fL (80.0-94.0); MEAN PLATELET VOLUME 9.4 fL (7.4-11.4); MONOCYTES # (AUTO) 0.6 10^3/uL (0.0-1.0); MONOCYTES % (AUTO) 9.7 %; NEUTROPHILS # (AUTO) 3.9 10^3/uL (1.5-6.6); NEUTROPHILS % (AUTO) 64.8 %; PLT - PLATELET COUNT 374 10^3/uL (130-450); RED BLOOD COUNT 3.23 10^6/uL (4.70-6.10); RED CELL DISTRIBUTION WIDTH 13.2 % (12.0-15.0)
[2023-03-02 11:23] LABS: ALBUMIN 3.1 g/dL (3.2-5.5); ALBUMIN/GLOBULIN RATIO 0.8 (1.0-2.2); BILIRUBIN,TOTAL 0.4 mg/dL (0.2-1.0); CALCIUM 8.9 mg/dL (8.5-10.3); CREATININE 0.8 mg/dL (0.6-1.3); POTASSIUM 4.2 mmol/L (3.5-4.5); TOTAL PROTEIN 6.9 g/dL (6.4-8.9)
== END 2023-03-02 11:01 | disposition home or self-care (01) ==
LOC: LAB.R 11:00
PROVIDERS: ATTEND Internal Medicine Infectious Disease
DX: I33.0 Acute and subacute infective endocarditis (principal)
CPT/HCPCS: 80053; 85025

== ENCOUNTER 2023-03-08 09:06 | Emergency (ER) | payer MEDICARE ==
[2023-03-08 09:27] VITALS: BP 146/78; O2SAT 98
--- OUTSIDE RECORDS SUMMARY | 2023-03-08 09:38 | EXTERNAL MEDICAL SUMMARY RPT | Continuity of Care Document ---
Author Name Unknown Address [address] [place] [address] Phone Organization [facility] Address [address] [phone] Phone Problems date description facility 2023-02-12 10:12 Abnormal result of o ther cardiovascular function study [facility] History date description facility
--- NOTE | 2023-03-08 10:24 | ED Physician Documentation ---
History of Present Illness - Stated complaint Stated Complaint: - Chief complaint Chief Complaint: General - History obtained from History obtained from: Patient - Additonal information Additional information: 77-year-old gentleman with indwelling catheter had what sounds like bladder spasm this morning and then some leakage around the catheter. PD PAST MEDICAL HISTORY - Past Medical History Cardiovascular: Hypertension, High cholesterol, Coronary artery disease, Other Respiratory: Sleep apnea, CPAP use Neuro: None Endocrine/Autoimmune: Type 2 diabetes GI: None : Benign prostate hypertrophy, Kidney stones HEENT: None Psych: None Musculoskeletal: Osteoarthritis, Gout, Other Derm: None - Past Surgical History Past Surgical History: Yes General: Cholecystectomy, Colonoscopy Ortho: Arthroscopic surgery, Other - Present Medications Home Medications: Ambulatory Orders Medication Instructions Recorded Confirmed Finasteride [Proscar] 5 mg ORAL DAILY 02/13/14 02/07/23 Metformin HCl [Metformin ER 500 mg PO BID 02/13/14 02/07/23 Osmotic] Terazosin [Hytrin] 20 mg ORAL QPM 02/13/14 02/08/23 amLODIPine [Norvasc] 5 mg PO DAILY 05/11/14 02/07/23 Atorvastatin Calcium 40 mg PO DAILY 02/07/23 02/07/23 Clopidogrel [Plavix] 75 mg PO DAILY 02/07/23 02/07/23 Irbesartan [Avapro] 150 mg PO BID 02/07/23 02/07/23 Metoprolol Succinate [Kapspargo 25 - 50 mg PO BID 02/07/23 02/10/23 Sprinkle] Terbinafine [LamISIL] 250 mg PO DAILY 02/07/23 02/07/23 - Allergies Allergies/Adverse Reactions: Allergies Allergy/AdvReac Type Severity Reaction Status Date / Time No Known Drug Allergies Allergy Verified 01/12/23 09:24 - Social History Does the pt smoke?: No Smoking Status: Never smoker Does the pt drink ETOH?: Yes Does the pt have substance abuse?: No - Immunizations Immunizations are current?: Yes - POLST Patient has POLST: No PD ED PE NORMAL - Vitals Vital signs reviewed: Yes - General General: Alert and oriented X 3, No acute distress - Abdomen Abdomen: Soft, Non tender - Male Male : Other (Hoyt in place, clear urine in bag, no obvious drainage or leakage.) - Neuro Neuro: Alert and oriented X 3, Normal speech Results - Vitals Vitals: Vital Signs - 24 hr 03/08/23 09:18 Temperature 36 C L Heart Rate 105 H Respiratory 16 Rate Blood Pressure 146/78 H O2 Saturation 98 Oxygen O2 Source Room air PD Medical Decision Making - ED course ED course: Sounds like he had a bladder spasm. The urine in the bag is relatively clear and he has no particular symptoms of UTI otherwise. Discussed options and he would like the catheter removed and to be discharged pending voiding trial at home as he lives close to the hospital. Departure - Departure Disposition: 01 Home, Self Care Clinical Impression: Hoyt catheter problem Qualifiers: Encounter type: initial encounter Qualified Code(s): T83.9XXA - Unspecified complication of genitourinary prosthetic device, implant and graft, initial encounter Condition: Good Record reviewed to determine appropriate education?: Yes Comments: We removed your catheter today, you should return if you are unable to urinate over the next 6 hours or so. Drink plenty fluids. Follow-up with urologist as scheduled.
== END 2023-03-08 10:30 | disposition home or self-care (01) ==
LOC: ED 09:06
DX: T83.9XXA Unspecified complication of genitourinary prosthetic device, implant and graft, initial encounter (principal); E11.9 Type 2 diabetes mellitus without complications; Z79.84 Long term (current) use of oral hypoglycemic drugs
CPT/HCPCS: 99281; 99282

== ENCOUNTER 2023-06-01 07:58 | Outpatient (CLI) | payer MEDICARE ==
[2023-06-01 08:12] LABS: HCT - HEMATOCRIT 42.8 % (42.0-52.0); HGB - HEMOGLOBIN 13.6 g/dL (14.0-18.0); MEAN CORPUSCULAR HEMOGLOBIN 29.5 pg (27.0-31.0); MEAN CORPUSCULAR HGB CONC 31.8 g/dL (32.0-36.0); MEAN CORPUSCULAR VOLUME 92.8 fL (80.0-94.0); MEAN PLATELET VOLUME 9.1 fL (7.4-11.4); RED BLOOD COUNT 4.61 10^6/uL (4.70-6.10); RED CELL DISTRIBUTION WIDTH 13.9 % (12.0-15.0); WHITE BLOOD COUNT 6.9 x10^3/uL (4.8-10.8)
[2023-06-01 08:26] LABS: ALBUMIN 4.3 g/dL (3.2-5.5); ALBUMIN/GLOBULIN RATIO 1.5 (1.0-2.2); ALKALINE PHOSPHATASE 48 IU/L (42-121); ALT ALANINE AMINOTRANSFERASE 18 IU/L (10-60); AST ASPARTATE AMINOTRANSFERASE 15 IU/L (10-42); BILIRUBIN,TOTAL 0.5 mg/dL (0.2-1.0); BUN - BLOOD UREA NITROGEN 20 mg/dL (6-20); CALCIUM 9.4 mg/dL (8.5-10.3); CARBON DIOXIDE - CO2 29 mmol/L (21-32); CHLORIDE 106 mmol/L (101-111); CHOL/HDL RATIO 3.2 (<5.0); CHOLESTEROL 123 mg/dL; CREATININE 0.9 mg/dL (0.6-1.3); GFR - MDRD 82 (>89); GLUCOSE 193 mg/dL (74-104); HDL CHOLESTEROL 39 mg/dL; LDL CHOLESTEROL,CALCULATED 62 mg/dL; LDL/HDL RATIO 1.6 (<3.6); POTASSIUM 4.2 mmol/L (3.5-4.5); SODIUM 142 mmol/L (135-145); TOTAL PROTEIN 7.1 g/dL (6.4-8.9); TRIGLYCERIDES 109 mg/dL (48-352); VLDL CHOLESTEROL 22 mg/dL
[2023-06-01 08:42] LABS: THYROID STIMULATING HORMONE 2.53 uIU/mL (0.34-5.60)
[2023-06-01 12:26] LABS: ESTIMATED AVERAGE GLUCOSE 154 mg/dL (70-100)
== END 2023-06-01 07:59 | disposition home or self-care (01) ==
LOC: LAB 07:58
PROVIDERS: ATTEND Family Medicine
DX: E11.8 Type 2 diabetes mellitus with unspecified complications (principal); I33.0 Acute and subacute infective endocarditis; I25.10 Atherosclerotic heart disease of native coronary artery without angina pectoris
CPT/HCPCS: 36415; 80053; 80061; 83036; 83721; 84153; 84443; 85027

== ENCOUNTER 2023-09-16 07:11 | Outpatient (CLI) | payer MEDICARE ==
[2023-09-16 07:38] LABS: CREATININE,URINE 78.3 mg/dL; MICROALBUM/CREATININE RATIO,UR 17.9 ug/mg (<30.0); MICROALBUMIN,URINE 1.4 mg/dL
[2023-09-16 07:50] LABS: CALCIUM 9.9 mg/dL (8.5-10.3); CREATININE 0.9 mg/dL (0.6-1.3); POTASSIUM 4.3 mmol/L (3.5-4.5)
[2023-09-16 11:20] LABS: ESTIMATED AVERAGE GLUCOSE 148 mg/dL (70-100); HEMOGLOBIN A1c% 6.8 % (4.27-6.07)
== END 2023-09-16 07:12 | disposition home or self-care (01) ==
LOC: LAB 07:11
PROVIDERS: ATTEND Family Medicine
DX: E11.9 Type 2 diabetes mellitus without complications (principal)
CPT/HCPCS: 36415; 80048; 82043; 82570; 83036

== ENCOUNTER 2024-01-11 11:17 | Outpatient (CLI) | payer MEDICARE ==
--- NOTE | 2024-01-11 09:36 | SLEEP CARE CONSULTATION ---
Information from patient questionnaire entered by Remigio Campoverde. I have reviewed and concur with the information entered by Remigio Campoverde. This document represents the service I personally performed and the decisions made by me, Shy Khan MD, [facility]. History of Present Illness Service Date and Time: 01/11/2024 0920 Previous diagnosis: Severe, Obstructive Sleep Apnea-Hypopnea Syndrome AHI: 59.1 (in 2012) Reason for follow up: annual (LAST SEEN 09/2022) Equipment type: CPAP (RESMED) Equipment obtained from: Other ([facility]) Mask style: Full face Prior sleep studies: Yes Year and Where: 2012 - [facility] Sleep Type of Sleep Study: Polysomnography HPI additional information: Mr. Figueroa was called today via audio only telemedicine ([employer]) today for a follow up of nasal CPAP therapy after he acquired a ResMed AirSense 11 from [facility] over two years ago. He was diagnosed to have severe obstructive sleep apnea-hypopnea syndrome. The patient wears a ResMed AirTouch F-20 full face mask. He continues to continues to use the device nightly and all through the night. The compliance report shows usage in 360 nights out of the past 365 nights, averaging 9.0 hours a night. He complained of no particular problem with the device such as soreness on the face, dry nose, epistaxis, nasal congestion or headache. He thinks that the pressure of 4 8 cmH2O is comfortable. On the CPAP therapy he notices improvement in his sleep quality, and that he wakes up feeling fresher in the morning and more awake/alert during the day. His [place] Sleepiness Scale score is 1. His notices no snore at all (she snores loudly herself). The average residual AHI is 5.2 (was 2.4 last year); and air leak, 0.6 L/minute. His residual AHI was very high last February. The 90th percentile pressure is 7.9 cmH2O. He also has a new [employer] DreamStation 2 autoCPAP which came as the replacement to the recalled DreamStation 1. He does not know what pressure is set on it. Sleep Study - Results Type of Sleep Study: Polysomnography Prior sleep studies: Yes Year and Where: 2012 - [facility] CPAP Compliance Data - Data Reviewed with Patient Average duration of nightly device use: 8HRS 55MINS Compliance rate %: 96 (01/07/23-01/06/24) Current pressure setting (cmH2O): 4-8 Average residual AHI: 5.2 Subjective Missed days of use due to: reports: other (N/A) Patient concerns: reports: other (N/A) Current pressure setting perceived as: comfortable Initial [place] Sleepiness Scale score: 4 (in 2012) Current [place] Sleepiness Scale score: 1 (01/11/24) Allergies and Home Medications Drug allergies reviewed: Yes Home medication list reviewed: Yes Allergy and home medication list: Allergies No Known Drug Allergies Allergy (Verified 01/11/24 08:57) Review of Systems Review of systems same as previous: Yes (NO CHANGE) Physical Exam Vital signs obtained and entered by: REMIGIO Jimenez MA Blood Pressure: 130/70 (PER PT) Height: 5 ft 11.5 in (PER PT) Weight: 226 lb (PER PT) Body Mass Index: 31.1 BMI Classification: Obese Impression and Plan IMPRESSION: 1. Obstructive Sleep Apnea-Hypopnea Syndrome, severe with the patient doing well on nasal CPAP therapy. She has excellent compliance and significant clinical improvement. The current pressure appears effective and comfortable. Overall, she is very satisfied with the treatment and plans to continue with it long-term. No adjustment is necessary today. Because the CPAP is now older than the useful life of 5 years, I will order the patient a new one and make it an autoCPAP set between 6 and 10 cmH2O. PLAN: 1. Continue with autoCPAP set at 6 - 10 cmH2O. 2. Prescription made for an autoCPAP, heated humidifier, and related supplies. 3. Try to lose weight. 4. Return in one year for follow up or earlier if there is any problem. Follow up with Sleep Care in: 1 year Visit Type: Telehealth Phone Video Type: Doximity Patient Location: Home Location of Provider: Other (car) Patient agrees and consents to this telehealth visit type: Yes Patient agrees to have their insurance billed: Yes Time Spent with Patient (minutes): 15 Provider Statement: I spent 100% of the Telehealth Phone Call with the patient with greater than 50% spent counseling the patient and coordination of care.
[2024-01-11 09:45] VITALS: BP 130/70
== END 2024-01-11 11:18 | disposition home or self-care (01) ==
LOC: SC 11:17
PROVIDERS: ATTEND Internal Medicine Pulmonary Disease
DX: G47.33 Obstructive sleep apnea (adult) (pediatric) (principal); E66.9 Obesity, unspecified; Z68.31 Body mass index [BMI] 31.0-31.9, adult
CPT/HCPCS: 99442

== ENCOUNTER 2024-01-15 08:23 | Outpatient (CLI) | payer MEDICARE ==
[2024-01-15 08:43] LABS: BASOPHILS # (AUTO) 0.1 10^3/uL (0.0-0.1); BASOPHILS % (AUTO) 0.8 %; EOSINOPHILS # (AUTO) 0.1 10^3/uL (0.0-0.7); EOSINOPHILS % (AUTO) 1.1 %; HCT - HEMATOCRIT 39.1 % (42.0-52.0); HGB - HEMOGLOBIN 12.1 g/dL (14.0-18.0); LYMPHOCYTES # (AUTO) 1.1 10^3/uL (1.5-3.5); LYMPHOCYTES % (AUTO) 15.7 %; MEAN CORPUSCULAR HEMOGLOBIN 29.4 pg (27.0-31.0); MEAN CORPUSCULAR HGB CONC 30.9 g/dL (32.0-36.0); MEAN CORPUSCULAR VOLUME 94.9 fL (80.0-94.0); MEAN PLATELET VOLUME 9.4 fL (7.4-11.4); MONOCYTES % (AUTO) 13.8 %; NEUTROPHILS # (AUTO) 4.8 10^3/uL (1.5-6.6); NEUTROPHILS % (AUTO) 67.5 %; PLT - PLATELET COUNT 222 10^3/uL (130-450); RED BLOOD COUNT 4.12 10^6/uL (4.70-6.10); RED CELL DISTRIBUTION WIDTH 14.7 % (12.0-15.0); WHITE BLOOD COUNT 7.1 x10^3/uL (4.8-10.8)
[2024-01-15 08:57] LABS: ALBUMIN 3.7 g/dL (3.2-5.5); ALBUMIN/GLOBULIN RATIO 1.2 (1.0-2.2); ALKALINE PHOSPHATASE 225 IU/L (42-121); ALT ALANINE AMINOTRANSFERASE 50 IU/L (10-60); AST ASPARTATE AMINOTRANSFERASE 56 IU/L (10-42); BILIRUBIN,TOTAL 0.7 mg/dL (0.2-1.0); BUN - BLOOD UREA NITROGEN 17 mg/dL (6-20); CALCIUM 10.1 mg/dL (8.5-10.3); CARBON DIOXIDE - CO2 26 mmol/L (21-32); CHLORIDE 99 mmol/L (101-111); CHOL/HDL RATIO 2.9 (<5.0); CHOLESTEROL 154 mg/dL; CREATININE 0.7 mg/dL (0.6-1.3); GFR - MDRD 110 (>89); GLUCOSE 92 mg/dL (74-104); HDL CHOLESTEROL 53 mg/dL; LDL CHOLESTEROL,CALCULATED 52 mg/dL; POTASSIUM 4.5 mmol/L (3.5-4.5); SODIUM 140 mmol/L (135-145); TOTAL PROTEIN 6.8 g/dL (6.4-8.9); TRIGLYCERIDES 245 mg/dL; VLDL CHOLESTEROL 49 mg/dL
[2024-01-15 09:01] LABS: MICROALBUM/CREATININE RATIO,UR 42.7 ug/mg (<30.0); MICROALBUMIN,URINE 3.2 mg/dL
[2024-01-15 09:09] LABS: ESTIMATED AVERAGE GLUCOSE 114 mg/dL (70-100); HEMOGLOBIN A1c% 5.6 % (4.27-6.07)
[2024-01-15 09:10] LABS: THYROID STIMULATING HORMONE 3.37 uIU/mL (0.34-5.60)
== END 2024-01-15 08:24 | disposition home or self-care (01) ==
LOC: LAB 08:23
PROVIDERS: ATTEND Family Medicine
DX: E11.8 Type 2 diabetes mellitus with unspecified complications (principal); Z12.5 Encounter for screening for malignant neoplasm of prostate; E66.9 Obesity, unspecified; M51.36 Other intervertebral disc degeneration, lumbar region; I25.10 Atherosclerotic heart disease of native coronary artery without angina pectoris; I47.10 Supraventricular tachycardia, unspecified; D12.6 Benign neoplasm of colon, unspecified; N40.0 Benign prostatic hyperplasia without lower urinary tract symptoms
CPT/HCPCS: 36415; 80053; 80061; 82043; 82570; 83036; 84443; 85025; G0103; 83721; 84153

== ENCOUNTER 2024-01-28 12:48 | Outpatient (CLI) | payer MEDICARE ==
[2024-01-28 13:00] LABS: BASOPHILS # (AUTO) 0.1 10^3/uL (0.0-0.1); BASOPHILS % (AUTO) 0.9 %; EOSINOPHILS % (AUTO) 0.3 %; HCT - HEMATOCRIT 39.5 % (42.0-52.0); HGB - HEMOGLOBIN 12.2 g/dL (14.0-18.0); LYMPHOCYTES # (AUTO) 0.9 10^3/uL (1.5-3.5); LYMPHOCYTES % (AUTO) 11.2 %; MEAN CORPUSCULAR HEMOGLOBIN 29.8 pg (27.0-31.0); MEAN CORPUSCULAR HGB CONC 30.9 g/dL (32.0-36.0); MEAN CORPUSCULAR VOLUME 96.6 fL (80.0-94.0); MEAN PLATELET VOLUME 9.4 fL (7.4-11.4); MONOCYTES # (AUTO) 0.8 10^3/uL (0.0-1.0); MONOCYTES % (AUTO) 9.4 %; NEUTROPHILS # (AUTO) 6.1 10^3/uL (1.5-6.6); NEUTROPHILS % (AUTO) 76.1 %; PLT - PLATELET COUNT 256 10^3/uL (130-450); RED BLOOD COUNT 4.09 10^6/uL (4.70-6.10); RED CELL DISTRIBUTION WIDTH 16.1 % (12.0-15.0)
[2024-01-28 13:35] LABS: ALBUMIN 3.8 g/dL (3.2-5.5); ALBUMIN/GLOBULIN RATIO 1.2 (1.0-2.2); BILIRUBIN,TOTAL 0.7 mg/dL (0.2-1.0); CALCIUM 11.2 mg/dL (8.5-10.3); CREATININE 0.9 mg/dL (0.6-1.3); POTASSIUM 4.9 mmol/L (3.5-4.5); TOTAL PROTEIN 6.9 g/dL (6.4-8.9)
== END 2024-01-28 12:49 | disposition home or self-care (01) ==
LOC: LAB 12:48
PROVIDERS: ATTEND Emergency Medicine
DX: R53.1 Weakness (principal)
CPT/HCPCS: 36415; 80053; 81599; 85025

== ENCOUNTER 2024-02-07 15:15 | Emergency (ER) | payer MEDICARE ==
[2024-02-07 15:49] LABS: BILIRUBIN,URINE SMALL (NEGATIVE); GLUCOSE, URINE (UA) NEGATIVE (NEGATIVE); KETONES,URINE (UA) TRACE mg/dL (NEGATIVE); LEUKOCYTE ESTERASE, URINE NEGATIVE (NEGATIVE); NITRITE,URINE NEGATIVE (NEGATIVE); OCCULT BLOOD,URINE NEGATIVE (NEGATIVE); PH,URINE 5.5 PH (5.0-7.5); PROTEIN,URINE TRACE mg/dL (NEGATIVE); UROBILINOGEN,URINE 0.2 (NORMAL) E.U./dL (NORMAL)
[2024-02-07 15:50] LABS: CLARITY,URINE CLEAR (CLEAR)
--- NOTE | 2024-02-07 15:56 | ED Physician Documentation ---
PD HPI MALE - Stated complaint Stated Complaint: - Chief complaint Chief Complaint: UTI - History obtained from History obtained from: Patient - History of Present Illness Timing - onset: How many weeks ago (1-2 weeks of frequency, dysuria and burning with urination. No hermaturia. No lesions/skin sores.) Timing - duration: Weeks (1-2) Timing - details: Gradual onset, Still present (worse the past few days.), Waxing and waning Associated symptoms: Dysuria, Urinary frequency, Other (While here the patient's son-in-law noted the patient had been having problems with balance and sluggish responses. No falls or headache noted. No focal weaknesses. We did discuss it and opted for head imaging.). No: Testiclar pain, Abdominal pain, Back pain Similar symptoms before: Has not had sx before Recently seen: Clinic (Seen 10 days ago walk-in for concerns of lightheadedness and slightly off balance. Blood tests were done which did not show any obvious abnormalities.) Review of Systems Constitutional: denies: Fever, Chills GI: denies: Nausea, Vomiting, Diarrhea Neurologic: reports: Altered mental status (sluggish responses and some ataxia/balance problems past few weeks.). denies: Headache, Head injury PD PAST MEDICAL HISTORY - Past Medical History Cardiovascular: Hypertension, High cholesterol, Coronary artery disease, Other Respiratory: Sleep apnea, CPAP use Neuro: None Endocrine/Autoimmune: Type 2 diabetes GI: None : Benign prostate hypertrophy, Kidney stones HEENT: None Psych: None Musculoskeletal: Osteoarthritis, Gout, Other Derm: None - Past Surgical History Past Surgical History: Yes General: Cholecystectomy, Colonoscopy Ortho: Arthroscopic surgery, Other - Present Medications Home Medications: Ambulatory Orders Medication Instructions Recorded Confirmed Finasteride [Proscar] 5 mg ORAL DAILY 02/13/14 01/11/24 Metformin HCl [Metformin ER 500 mg PO BID 02/13/14 01/11/24 Osmotic] Terazosin [Hytrin] 20 mg ORAL QPM 02/13/14 01/11/24 amLODIPine [Norvasc] 5 mg PO DAILY 05/11/14 01/11/24 Atorvastatin Calcium 40 mg PO DAILY 02/07/23 01/11/24 Clopidogrel [Plavix] 75 mg PO DAILY 02/07/23 01/11/24 Irbesartan [Avapro] 150 mg PO BID 02/07/23 01/11/24 Metoprolol Succinate [Kapspargo 25 - 50 mg PO BID 02/07/23 01/11/24 Sprinkle] Ciprofloxacin [Cipro] 250 mg PO BID #14 tablet 02/07/24 Phenazopyridine HCl [Pyridium] 100 mg PO BID #15 tablet 02/07/24 - Allergies Allergies/Adverse Reactions: Allergies Allergy/AdvReac Type Severity Reaction Status Date / Time No Known Drug Allergies Allergy Verified 02/07/24 15:41 - Social History Does the pt smoke?: No Smoking Status: Never smoker Does the pt drink ETOH?: Yes ETOH Use: Wine Does the pt have substance abuse?: No - Immunizations Immunizations are current?: Yes - POLST Patient has POLST: No PD ED PE NORMAL - Vitals Vital signs reviewed: Yes - General General: Alert and oriented X 3 (but is sluggish for responses. ), No acute distress, Well developed/nourished - HEENT HEENT: Atraumatic - Neck Neck: Supple, no meningeal sign, No adenopathy - Cardiac Cardiac: RRR, No murmur - Respiratory Respiratory: No respiratory distress, Clear bilaterally - Abdomen Abdomen: Soft, Non tender, Non distended, Other (bladder scanner showed minimal in bladder) - Male Male : Other (External genitalia is normal. No rash or sores at the meatus n or glands. 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, No motor deficit, No sensory deficit, Normal speech Eye Opening: Spontaneous Motor: Obeys Commands Verbal: Oriented GCS Score: 15 Results - Vitals Vitals: Vital Signs - 24 hr 02/07/24 02/07/24 02/07/24 15:31 17:45 18:15 Temperature 36.1 C L Heart Rate 86 84 81 Respiratory 18 20 22 Rate Blood Pressure 153/71 H 143/75 H 141/76 H O2 Saturation 97 95 92 Oxygen O2 Source Room air - Labs Labs: Laboratory Tests 02/07/24 02/07/24 02/07/24 15:30 17:23 17:31 WBC 7.0 RBC 4.04 L Hgb 12.2 L Hct 39.4 L MCV 97.5 H MCH 30.2 MCHC 31.0 L RDW 16.6 H Plt Count 215 MPV 9.6 Neut # (Auto) 4.9 Lymph # (Auto) 1.1 L [place] # (Auto) 0.8 Eos # (Auto) 0.0 Baso # (Auto) 0.1 Absolute Nucleated RBC 0.00 Nucleated RBC % 0.0 PT 12.7 H INR 1.2 APTT 29.0 Sodium Potassium Chloride Carbon Dioxide Anion Gap BUN Creatinine Estimated GFR (MDRD) Glucose Calcium Total Bilirubin AST ALT Alkaline Phosphatase Total Protein Albumin Globulin Albumin/Globulin Ratio Lipase Urine Color YELLOW Urine Clarity CLEAR Urine pH 5.5 Ur Specific [place] >=1.030 H Urine Protein TRACE Urine Glucose (UA) NEGATIVE Urine Ketones TRACE Urine Occult Blood NEGATIVE Urine Nitrite NEGATIVE Urine Bilirubin SMALL H Urine Urobilinogen 0.2 (NORMAL) Ur Leukocyte Esterase NEGATIVE Ur Microscopic Review NOT INDICATED Urine Culture Comments NOT INDICATED 02/07/24 17:31 WBC RBC Hgb Hct MCV MCH MCHC RDW Plt Count MPV Neut # (Auto) Lymph # (Auto) [place] # (Auto) Eos # (Auto) Baso # (Auto) Absolute Nucleated RBC Nucleated RBC % PT INR APTT Sodium 140 Potassium 4.5 Chloride 99 L Carbon Dioxide 20 L Anion Gap 21.0 H BUN 26 H Creatinine 0.8 Estimated GFR (MDRD) 94 Glucose 67 L Calcium 11.4 H Total Bilirubin 0.7 AST 59 H ALT 55 Alkaline Phosphatase 243 H Total Protein 6.6 Albumin 3.9 Globulin 2.7 Albumin/Globulin Ratio 1.4 Lipase 28 Urine Color Urine Clarity Urine pH Ur Specific [place] Urine Protein Urine Glucose (UA) Urine Ketones Urine Occult Blood Urine Nitrite Urine Bilirubin Urine Urobilinogen Ur Leukocyte Esterase Ur Microscopic Review Urine Culture Comments - Rads (name of study) head CT Relevant Findings:: Prelim report reviewed, Discussed with rads (Right frontoparietal intracranial bleed measuring just over 2 cm with some very prominent vasogenic edema. Minimal to no midline shift.), EMP independent interpretation of test PD Medical Decision Making - ED course Complexity details: reviewed results, considered differential, d/w patient, d/w family ED course: The patient presented mainly with symptoms of dysuria and frequency and pain with urination for the past week or so. He had had some problem with lightheadedness and seen at the walk-in clinic on the fifth with some basic blood test done which did not show any obvious abnormalities. His son-in-law with him states they had noticed him being a little sluggish on responses and deliberate with walking with some being off balance over the last couple of weeks. The patient denies headaches or falls. He did have a fall about 2 to 3 months ago landing onto his elbows but did not strike his head. No more recent. The patient did provide a urine sample here which did not show any obvious infection per se. His symptoms however are dysuria and frequency. Bladder scanner showed minimal in the bladder. To have consideration for interstitial cystitis versus possibly prostate infection. I would treat him with antibiotics as well as anti-inflammatory and Pyridium and see if his symptoms improved but also to follow-up with urology. I did review the blood test that he had 10 days ago from the walk-in clinic and again no obvious acute abnormality of electrolytes kidney function etc. Talking with the patient and his son along with him, given the symptoms he had been having, we did decide on a CT scan of the head. This did show any acute area of bleeding that looks fairly fresh. The patient denies any headache or abrupt change in his symptoms necessarily today. He denies any fall or injury in the last day or 2. There is a considerable amount of vasogenic edema around which raises concern for an inflammatory or neoplastic process. CT angio was still pending. We do not have MRI available for at least until tomorrow and likely later tomorrow. I did talk initially with stroke neurology at given acute bleed. They are at capacity and did not have ready space for transfer. They suggested keeping systolic blood pressure below 160, repeat CT in 4 to 6 hours, holding his normal Plavix, watching for seizures but no prophylactic medicine. They did suggest trying other facilities and to get back to them if no other facilities available. I talked with the [facility]. They will review the imaging and have their neurosurgeon, eKmi Graham call us back. Still pending that conversation at this time. On the patient remained stable. His blood pressures 154 systolic. He is otherwise comfortable at this time. I did give dose of dexamethasone for the edema and 1000 mg TXA for the bleeding. We did check with prior evidence [facility] and they did have space available in their neuro ICU. I talked with the neurosurgeon on who accepted the patient direct ER to ER. I then talked with Dr. Putnam who is the attending in the emergency department who is now aware of the patient arriving. Consensus was for airlift transfer due to the time necessity of not wanting to be out of hospital and subsequent following up for repeat imaging. The patient remains stable. - Consults Consults: Consulted (name) (Eusebio, Neurology at ), Other (I talked with stroke neurology at . They did review the images of the plain CT. Awaiting the angio. They are at capacity there and with the patient being stable suggested trying other facilities. Recommendation for systolic blood pressure less than 160, repeat CT 4-6 hrs) - Critical Care Time(min): 55 Time Includes: Direct patient care, Reassess patient, Coordinate care, Medical consult, See progress note Data interpretation: Labs Procedures excluded from critical care time: EKG Departure - Departure Disposition: 02 Transfer Acute Care Hosp Clinical Impression: Dysuria, Intracranial hemorrhage, Balance problem, Altered thought processes Condition: Stable Record reviewed to determine appropriate education?: Yes Instructions: ED Dysuria Uncertain Cause Follow-Up: Aleksey Oliver MD [Primary Care Provider] - Cesar Nowak MD [Provider Admit Priv/Credential] - Prescriptions: Ciprofloxacin [Cipro] 250 mg PO BID #14 tablet Phenazopyridine HCl [Pyridium] 100 mg PO BID #15 tablet
[2024-02-07] MEDS: PHENAZOPYRIDINE 100 MG TABLET PO STA (16:53)
[2024-02-07] MEDS: CIPROFLOXACIN 250 MG TABLET PO STA (16:53)
[2024-02-07] MEDS: NAPROXEN 250 MG TABLET PO STA (16:53)
--- NOTE | 2024-02-07 17:05 | CT Report ---
PROCEDURE: Head WO INDICATIONS: slower cognition for 1-2 weeks TECHNIQUE: Noncontrast 4.5 mm thick angled axial sections acquired from the foramen magnum to the vertex. For r adiation dose reduction, the following was used: automated exposure control, adjustment of mA and/or kV according to patient size. COMPARISON: Brain MRI dated 02/07/[address] dated 06/13/2020 FINDINGS: Image quality: Diagnostic. CSF spaces: Basal cisterns are patent. No extra-axial fluid collections. Minimal effacement of the anterior horn of the right lateral ventricle. The ventricles are otherwise stable in size and configu ration. Brain: There is an oval hyperdense focus in the right parietal lobe measuring approximately 2.1 x 1. 5 x 2.2 cm in size. Moderate adjacent vasogenic edema of the right frontoparietal lobe. Mild effaceme nt of the adjacent sulci. No midline shift. No mass effect. [place]-white matter interface is normal. T here cerebral volume loss for age with resultant ventricular and sulcal prominence. There are periven tricular and deep white matter chronic small vessel ischemic changes. Atherosclerotic calcifications are noted in the intracranial segments of the bilateral internal carotid arteries. Skull and face: Calvarium and visualized facial bones are intact, without suspicious lesions. Sinuses: Visualized sinuses and mastoids are clear. IMPRESSION: Acute intracranial hemorrhage involving the right parietal lobe measuring 2.1 x 1.5 x 2.2 cm in size with moderate adjacent vasogenic edema and overlying sulcal effacement. No midline shift of structure s. Findings may represent a hemorrhagic contusion, hemorrhagic stroke, and less likely underlying rhea plastic process. Age-related senescent changes and sequela of chronic small vessel ischemic disease. Findings were discussed with Dr. Tinoco at 1536 hrs AK. Reviewed by: Florentino Joyce MD on 02/07/2024 4:04 PM AKDT Approved by: Florentino Joyce MD on 02/07/2024 4:04 PM AKDT Station ID: [id number]
[2024-02-07] MEDS ORDERED: TRANEXAMIC ACID 1,000 MG/10 ML VIAL ONE (17:31)
[2024-02-07 17:35] LABS: BASOPHILS # (AUTO) 0.1 10^3/uL (0.0-0.1); BASOPHILS % (AUTO) 1.1 %; EOSINOPHILS % (AUTO) 0.4 %; HCT - HEMATOCRIT 39.4 % (42.0-52.0); HGB - HEMOGLOBIN 12.2 g/dL (14.0-18.0); LYMPHOCYTES # (AUTO) 1.1 10^3/uL (1.5-3.5); LYMPHOCYTES % (AUTO) 15.2 %; MEAN CORPUSCULAR HEMOGLOBIN 30.2 pg (27.0-31.0); MEAN CORPUSCULAR VOLUME 97.5 fL (80.0-94.0); MEAN PLATELET VOLUME 9.6 fL (7.4-11.4); MONOCYTES # (AUTO) 0.8 10^3/uL (0.0-1.0); MONOCYTES % (AUTO) 11.5 %; NEUTROPHILS # (AUTO) 4.9 10^3/uL (1.5-6.6); NEUTROPHILS % (AUTO) 69.4 %; PLT - PLATELET COUNT 215 10^3/uL (130-450); RED BLOOD COUNT 4.04 10^6/uL (4.70-6.10); RED CELL DISTRIBUTION WIDTH 16.6 % (12.0-15.0)
[2024-02-07] MEDS: TRANEXAMIC ACID 1,000 MG in SODIUM CHLORIDE 0.9% 100ML 100 ML IV STA (17:39)
[2024-02-07] MEDS: DEXAMETHASONE 10 MG/ML VIAL IVP STA (17:39)
[2024-02-07 17:41] LABS: INR 1.2 (0.8-1.2); PT - PROTHROMBIN TIME 12.7 secs (9.9-12.6)
[2024-02-07] MEDS ORDERED: iohexoL-300 100 ML VIAL ONE (17:44)
[2024-02-07 17:55] LABS: ALBUMIN 3.9 g/dL (3.2-5.5); ALBUMIN/GLOBULIN RATIO 1.4 (1.0-2.2); BILIRUBIN,TOTAL 0.7 mg/dL (0.2-1.0); CALCIUM 11.4 mg/dL (8.5-10.3); CREATININE 0.8 mg/dL (0.6-1.3); POTASSIUM 4.5 mmol/L (3.5-4.5); TOTAL PROTEIN 6.6 g/dL (6.4-8.9)
[2024-02-07] MEDS: iohexoL-300 100 ML VIAL IVP ONE (18:25)
[2024-02-07] MEDS: DEXTROSE 5%-LACTATED RINGERS 1,000 ML IV SCH (18:57)
[2024-02-07] MEDS: DEXTROSE 10% 250 ML IV STA (18:59)
--- NOTE | 2024-02-07 19:00 | CT Report ---
PROCEDURE: Angio Head/Neck INDICATIONS: confused. ICH. TECHNIQUE: After the administration of intravenous contrast, 1 mm thick sections acquired from the aortic arch t hrough the [place]. 3-dimensional gjsjuwy-ugkcftfqb-malmndkfyd (MIP) and/or volume renderin g reformats were acquired of the central intracranial vasculature and neck separately. For radiation dose reduction, the following was used: automated exposure control, adjustment of mA and/or kV acco rding to patient size. CONTRAST: omni, 100 COMPARISON: CT head from earlier same day and CT soft tissue neck dated 02/11/2023 FINDINGS: Image quality: Diagnostic. HEAD CT: CSF Spaces: Basal cisterns are patent. No extra-axial fluid collections. Ventricles are normal in size and shape. Brain: Redemonstration of previously described acute intracranial hemorrhage of the right parietal lo be. There does not appear to be an underlying mass lesion. Multiple small opacified vessels are noted along the periphery of this hemorrhage. There is still adjacent vasogenic edema. No midline shift of structures. Mild effacement of the overlying sulci as before. No areas of suspicious enhancement francesco ntified. Skull and face: Calvarium and visualized facial bones appear intact, without suspicious lesions. Sinuses: Visualized sinuses and mastoids are clear. HEAD CT ANGIOGRAPHY: Anterior circulation: Atherosclerotic calcifications of the intracranial segments of the bilateral in ternal carotid arteries. Intracranial internal carotid arteries are normal in size and flow. The lev w within the paired anterior cerebral arteries is normal and symmetric. The flow within the middle c erebral arteries is normal and symmetric. The anterior communicating artery is seen. No aneurysms a re seen. Posterior circulation: Visualized portions of the vertebral arteries demonstrate normal caliber, and join to form a normal appearing basilar artery. Flow within the posterior cerebral arteries is norm al and symmetric. No aneurysms are seen. NECK CT ANGIOGRAPHY: Carotid system: The great vessels demonstrate a conventional anatomy as they arise from the aortic a [facility]. The origins of the common carotid arteries appear patent. The common carotid arteries demonstr ate normal caliber and courses. The bifurcation regions are both patent without high-grade stenosis. Mild atherosclerotic calcifications of the bilateral carotid bifurcations. The internal carotid art eries demonstrate normal calibers and courses. Posterior circulation: The origins of the vertebral arteries both appear patent without high-grade s tenosis. The more superior extracranial portions of both vertebral arteries also demonstrate normal courses and calibers. They join to form a normal appearing basilar artery. Soft tissues: Visualized neck soft tissues demonstrate no suspicious abnormalities. Bones: No suspicious bony lesions. Stable cervical alignment. No acute compression fractures. Severe multilevel cervical spondylosis not significantly changed. IMPRESSION: Persistent acute intracranial hemorrhage involving the right parietal lobe with moderate associated v asogenic edema. This hemorrhage does not appear to represent an intracranial mass. Findings may repre sent sequela of hemorrhagic stroke. Further evaluation with MRI can be considered if clinically indic ated. Otherwise, unremarkable CT angiogram of the intracranial and neck arterial vasculature without high-g rade stenosis, large vessel occlusion, dissection, or aneurysm. Scattered atherosclerosis. The estimate of stenosis included in the report of the imaging study was calculated using the NASCET method Reviewed by: Florentino Joyce MD on 02/07/2024 5:59 PM CHARLES Approved by: Florentino Joyce MD on 02/07/2024 5:59 PM CHARLES Station ID: [id number]
[2024-02-07 19:55] VITALS: BP 145/65; O2SAT 93
== END 2024-02-07 20:10 | disposition short-term general hospital (02) ==
LOC: ED 15:15
DX: I61.8 Other nontraumatic intracerebral hemorrhage (principal); R26.9 Unspecified abnormalities of gait and mobility; R41.82 Altered mental status, unspecified; R30.0 Dysuria; I10 Essential (primary) hypertension; E78.00 Pure hypercholesterolemia, unspecified; I25.10 Atherosclerotic heart disease of native coronary artery without angina pectoris; E11.9 Type 2 diabetes mellitus without complications; N40.0 Benign prostatic hyperplasia without lower urinary tract symptoms; M10.9 Gout, unspecified; Z87.442 Personal history of urinary calculi; Z79.899 Other long term (current) drug therapy
CPT/HCPCS: 36415; 51798; 70450; 70496; 70498; 80053; 81003; 83690; 85025; 85610; 85730; 93005; 96365; 96375; 99291; A9270; Q9967; 81001; 87086